=== PATIENT | female | born 1990 | race Caucasian/White ===

== ENCOUNTER 2017-03-25 11:17 | Inpatient (IN) | payer OTHER ==
[~2017-03-25] VITALS: Ht 160 cm; Wt 51.2 kg
[2017-03-25 12:14] VITALS: BP 115/54; PULSE 72; RESP 18; TEMP 98.4; O2SAT 100
--- NOTE | 2017-03-25 13:23 | PD ---
HPI Chief Complaint: Psychiatric Symptoms Time Seen by Provider: 13:05 Travel History International Travel<30 days: No Contact w/Intl Traveler<30days: No Traveled to known affect area: No History of Present Illness HPI 26-year-old female presents to emergency department as a Rios act from [facility]. Patient states that she was at home coloring when the police walked in and took her from her home. Patient is upset and would like to start coloring again. The patient is known IV drug user and her last use was 2 days ago. Patient denies fever, chills, chest pain, shortness of breath, abdominal pain. Patient does not have any other complaints today without to go home. Patient denies suicidal or homicidal ideations, hallucinations. PFSH Past Medical History Diabetes: No Seizures: No ?: Unknown Past Surgical History Section: Yes Tonsillectomy: Yes Social History Alcohol Use: Yes (OCC) Tobacco Use: Yes (1/2 PPD) Substance Use: Yes (MARIJUANA) Allergies-Medications (Allergen,Severity, Reaction): Coded Allergies: No Known Allergies (Verified Allergy, Unknown, 03/25/17) bupropion (Verified Allergy, Unknown, 03/25/17) Per pt, was taken off of Wellbutrin because she had seizures on it. Reported Meds & Prescriptions Reported Meds & Active Scripts Active Macrobid (Nitrofurantoin Monoh/Nitrofur Macro) 100 Mg Cap 100 Mg PO BID 7 Days Review of Systems Except as stated in HPI: all other systems reviewed are Neg Physical Exam Exam Limitations: Poor Historian Narrative GENERAL: Well-developed well-nourished in mild distress, upset SKIN: Focused skin assessment warm/dry. HEAD: Atraumatic. Normocephalic. EYES: Pupils equal and round. No scleral icterus. No injection or drainage. ENT: No nasal bleeding or discharge. Mucous membranes pink and moist. NECK: Trachea midline. No JVD. CARDIOVASCULAR: Regular rate and rhythm. No murmur appreciated. RESPIRATORY: No accessory muscle use. Clear to auscultation. Breath sounds equal bilaterally. MUSCULOSKELETAL: No obvious deformities. No clubbing. No cyanosis. No edema. NEUROLOGICAL: Awake and alert. No obvious cranial nerve deficits. Motor grossly within normal limits. Normal speech. PSYCHIATRIC: Patient angry, tearful upon questioning Data Data Last Documented VS Vital Signs Date Time Temp Pulse Resp B/P (MAP) Pulse Ox O2 Delivery O2 Flow Rate FiO2 03/25/17 12:14 98.4 72 18 115/54 (74) 100 Room Air Orders Orders Complete Blood Count With Diff (03/25/17 13:06) Comprehensive Metabolic Panel (03/25/17 13:06) Urinalysis - C+S If Indicated (03/25/17 13:06) Psych Screen (03/25/17 13:06) Drug Screen, Random Urine (03/25/17 13:06) Urine Culture (03/25/17 14:28) Admit Order (Ed Use Only) (03/25/17 16:02) Labs Laboratory Tests Test 03/25/17 14:16 03/25/17 14:28 White Blood Count 9.1 TH/MM3 Red Blood Count 5.30 MIL/MM3 Hemoglobin 12.0 GM/DL Hematocrit 36.0 % Mean Corpuscular Volume 67.9 FL Mean Corpuscular Hemoglobin 22.6 PG Mean Corpuscular Hemoglobin Concent 33.2 % Red Cell Distribution Width 14.8 % Platelet Count 254 TH/MM3 Mean Platelet Volume 8.7 FL Neutrophils (%) (Auto) 52.4 % Lymphocytes (%) (Auto) 33.8 % Monocytes (%) (Auto) 9.3 % Eosinophils (%) (Auto) 3.4 % Basophils (%) (Auto) 1.1 % Neutrophils # (Auto) 4.8 TH/MM3 Lymphocytes # (Auto) 3.1 TH/MM3 Monocytes # (Auto) 0.8 TH/MM3 Eosinophils # (Auto) 0.3 TH/MM3 Basophils # (Auto) 0.1 TH/MM3 CBC Comment DIFF FINAL Differential Comment Blood Urea Nitrogen 14 MG/DL Creatinine 0.63 MG/DL Random Glucose 82 MG/DL Total Protein 7.4 GM/DL Albumin 3.7 GM/DL Calcium Level 8.5 MG/DL Alkaline Phosphatase 71 U/L Aspartate Amino Transf (AST/SGOT) 46 U/L Alanine Aminotransferase (ALT/SGPT) 59 U/L Total Bilirubin 0.4 MG/DL Sodium Level 139 MEQ/L Potassium Level 3.9 MEQ/L Chloride Level 106 MEQ/L Carbon Dioxide Level 27.3 MEQ/L Anion Gap 6 MEQ/L Estimat Glomerular Filtration Rate 113 ML/MIN Urine Color LIGHT-YELLOW Urine Turbidity CLOUDY Urine pH 8.0 Urine Specific [place] 1.008 Urine Protein NEG mg/dL Urine Glucose (UA) NEG mg/dL Urine Ketones NEG mg/dL Urine Occult Blood NEG Urine Nitrite NEG Urine Bilirubin NEG Urine Urobilinogen LESS THAN 2.0 MG/DL Urine Leukocyte Esterase LARGE Urine RBC LESS THAN 1 /hpf Urine WBC 9 /hpf Urine Squamous Epithelial Cells 1 /hpf Urine Amorphous Sediment MANY Urine Bacteria OCC /hpf Urine Mucus FEW /lpf Microscopic Urinalysis Comment CULTURE INDICATED Urine Opiates Screen NEG Urine Barbiturates Screen NEG Urine Amphetamines Screen NEG Urine Benzodiazepines Screen NEG Urine Cocaine Screen NEG Urine Cannabinoids Screen POS MDM Medical Decision Making Medical Screen Exam Complete: Yes Emergency Medical Condition: Yes Differential Diagnosis SI, HI, delirium, polysubstance abuse, MDD, substance induce mood disorder Narrative Course 26-year-old female presents to emergency department as a Rios act from [facility]. Patient states that she was at home coloring when the police walked in and took her from her home. Patient is upset and would like to start coloring again. The patient is known IV drug user and her last use was 2 days ago. Patient denies fever, chills, chest pain, shortness of breath, abdominal pain. Patient does not have any other complaints today without to go home. Patient denies suicidal or homicidal ideations, hallucinations. Vital signs stable Physical exam limited secondary to patient's reluctance to cooperate. Laboratory Tests Test 03/25/17 14:16 03/25/17 14:28 White Blood Count 9.1 TH/MM3 Red Blood Count 5.30 MIL/MM3 Hemoglobin 12.0 GM/DL Hematocrit 36.0 % Mean Corpuscular Volume 67.9 FL Mean Corpuscular Hemoglobin 22.6 PG Mean Corpuscular Hemoglobin Concent 33.2 % Red Cell Distribution Width 14.8 % Platelet Count 254 TH/MM3 Mean Platelet Volume 8.7 FL Neutrophils (%) (Auto) 52.4 % Lymphocytes (%) (Auto) 33.8 % Monocytes (%) (Auto) 9.3 % Eosinophils (%) (Auto) 3.4 % Basophils (%) (Auto) 1.1 % Neutrophils # (Auto) 4.8 TH/MM3 Lymphocytes # (Auto) 3.1 TH/MM3 Monocytes # (Auto) 0.8 TH/MM3 Eosinophils # (Auto) 0.3 TH/MM3 Basophils # (Auto) 0.1 TH/MM3 CBC Comment DIFF FINAL Differential Comment Blood Urea Nitrogen 14 MG/DL Creatinine 0.63 MG/DL Random Glucose 82 MG/DL Total Protein 7.4 GM/DL Albumin 3.7 GM/DL Calcium Level 8.5 MG/DL Alkaline Phosphatase 71 U/L Aspartate Amino Transf (AST/SGOT) 46 U/L Alanine Aminotransferase (ALT/SGPT) 59 U/L Total Bilirubin 0.4 MG/DL Sodium Level 139 MEQ/L Potassium Level 3.9 MEQ/L Chloride Level 106 MEQ/L Carbon Dioxide Level 27.3 MEQ/L Anion Gap 6 MEQ/L Estimat Glomerular Filtration Rate 113 ML/MIN Urine Color LIGHT-YELLOW Urine Turbidity CLOUDY Urine pH 8.0 Urine Specific [place] 1.008 Urine Protein NEG mg/dL Urine Glucose (UA) NEG mg/dL Urine Ketones NEG mg/dL Urine Occult Blood NEG Urine Nitrite NEG Urine Bilirubin NEG Urine Urobilinogen LESS THAN 2.0 MG/DL Urine Leukocyte Esterase LARGE Urine RBC LESS THAN 1 /hpf Urine WBC 9 /hpf Urine Squamous Epithelial Cells 1 /hpf Urine Amorphous Sediment MANY Urine Bacteria OCC /hpf Urine Mucus FEW /lpf Microscopic Urinalysis Comment CULTURE INDICATED Urine Opiates Screen NEG Urine Barbiturates Screen NEG Urine Amphetamines Screen NEG Urine Benzodiazepines Screen NEG Urine Cocaine Screen NEG Urine Cannabinoids Screen POS Patient is medically cleared to see psych. According to staff, patient was brought in by the police department after being homeless on [address]. Urinalysis consistent with urinary tract infection. We'll prescribe Macrobid twice a day. Patient is admitted to psych. Diagnosis Primary Impression: UTI (urinary tract infection) Qualified Codes: N30.00 - Acute cystitis without hematuria Referrals: [facility] Nitrofurantoin Monohydrate Macrocrystals (Macrobid) 100 Mg Cap 100 MG PO BID for Infection for 7 Days, #14 CAP 0 Refills Prov: Margareth Bruce DO 03/25/17 Condition: Stable Diana Vale Mar 25, 2017 13:23
[2017-03-25 15:26] LABS: AUTOMATED NEUTROPHIL # 4.8 TH/MM3 (1.8-7.7); BASOPHIL # 0.1 TH/MM3 (0-0.2); BASOPHIL % 1.1 % (0.0-2.0); EOSINOPHIL # 0.3 TH/MM3 (0-0.4); EOSINOPHIL % 3.4 % (0.0-4.0); HEMO FLAGS DIFF FINAL; LYMPH % 33.8 % (9.0-44.0); LYMPHOCYTE # 3.1 TH/MM3 (1.0-4.8); MEAN CELL VOLUME 67.9 FL (80.0-100.0); MEAN CORPUSCULAR HEMOGLOBIN 22.6 PG (27.0-34.0); MEAN CORPUSCULAR HGB CONC 33.2 % (32.0-36.0); MONO % 9.3 % (0.0-8.0); NEUT % 52.4 % (16.0-70.0); PLATELET COUNT 254 TH/MM3 (150-450); RED CELL DISTRIBUTION WIDTH 14.8 % (11.6-17.2); WHITE BLOOD COUNT 9.1 TH/MM3 (4.0-11.0)
[2017-03-25 15:29] LABS: BACTERIA, URINE OCC /hpf; BLOOD, URINE NEG (NEG); COMMENT (UR) CULTURE INDICATED; CULTURE IF INDICATED CULTURE INDICATED; GLUCOSE,URINE NEG (NEG); KETONE, URINE NEG (NEG); MUCUS URINE FEW /lpf (OCC); NITRITE,URINE NEG (NEG); SQUAMOUS EPITHELIAL CELL URINE 1 /hpf (0-5); URINE COLOR LIGHT-YELLOW (YELLW/STRAW)
[2017-03-25 15:55] LABS: ALKALINE PHOSPHATASE 71 U/L (45-117); TOTAL BILIRUBIN ADULT 0.4 MG/DL (0.2-1.0)
[2017-03-25] MEDS ORDERED: MACR100C2 PO (16:00)
[2017-03-25 16:15] LABS: ALT (GPT) 59 U/L (10-53); ANION GAP 6 MEQ/L (5-15); AST (GOT) 46 U/L (15-37); BICARBONATE 27.3 MEQ/L (21.0-32.0); BLOOD UREA NITROGEN 14 MG/DL (7-18); CHLORIDE 106 MEQ/L (98-107); GLOMERULAR FILTRATION RATE 113 ML/MIN (>89); SODIUM (NA) 139 MEQ/L (136-145)
[2017-03-25] MEDS ORDERED: ALUMINUM/MAGNESIUM/SIMETH 30 ML CUP PO PRN (16:15)
[2017-03-25] MEDS ORDERED: LORazepam 2 MG/ML VIAL IM PRN (16:15)
[2017-03-25 16:18] LABS: POTASSIUM 3.9 MEQ/L (3.5-5.1)
--- NOTE | 2017-03-25 16:20 | HHI.HP ---
Provisional Diagnosis Admission Date Mar 25, 2017 at 16:04 Grant I. Brief psychotic disorder Certification of Person's Competence To Provide Express and Informed Consent I have personally examined Nathalia Barber , a person being served at [facility] on, Mar 25, 2017 16:11. Express and informed consent means consent voluntarily given in writing, by a competent person, after sufficient explanation and disclosure of the subject matter involved to enable the person to make a knowing and willful decision without any element of force, fraud, deceit, duress, or other form of constraint or coercion. This person is 18 years of age or older, is not now known to be incompetent to consent to treatment with a guardian advocate, and does not have a health care surrogate or proxy currently making medical treatment decisions. I have found this person to be one of the following: [] Competent to provide express and informed consent, as defined above, for voluntary admission to this facility and is competent to provide express and informed consent for treatment. He/she has the consistent capacity to make well reasoned, willful, and knowing decisions concerning his or her medical or mental health treatment. The person fully and consistently understands the purpose of the admission for examination/placement and is fully capable of personally exercising all rights [place] [X] Incompetent to provide express and informed consent to voluntary admission, and this is incompetent to provide express and informed consent to treatment. The person must be transferred to involuntary status and a petition for a guardian advocate filed with the Circuit Court. [] Refusing to provide express and informed consent to voluntary admission but is competent to provide express and informed consent for treatment. The person must be discharged or transferred to involuntary status. Form shall be completed within 24 hours of a person's arrival at the receiving facility and filed in the clinical record of each person: 1. Admitted on a voluntary basis 2. Permitted to provide express and informed consent to his/her own treatment 3. Allowed to transfer from involuntary to voluntary status 4. Prior to permitting a person to consent to his or her own treatment after having been previously found incompetent to consent to treatment. History of Present Illness Capacity: Lacks Capacity HPI 26-year-old female brought in under a Rios act initiated by law enforcement for what appears to be bizarre thinking and homicidal remarks. Apparently the patient was at her mother's house this morning and appeared to be under the influence of drugs and in an altered state of mind. (The patient's mother reportedly has power of staff attorney over the patient.) The patient had written down in a diary like book to find Yessica, her daughter and kill her. The patient had also written other strange comments about hurting Yessica, who is the 4-year- old daughter of the patient. One of the bizarre comments made by the patient's , in her writings was to smell the vagina of her 4-year-old daughter. Upon interview, the patient is a very poor historian. She is highly emotionally distraught. She is speaking very rapidly and at times in a pressured manner at this physician. She is screaming, crying, and refusing to participate in the interview. This physician understands from the patient's stepfather the patient has used drugs (intravenously) approximately 2 days ago. The patient is positive for cannabinoids. The patient's daughter was recently given to the patient's paternal grandparents. The patient is denying writing these bizarre comments but these comments are contained amongst the patient's belongings, and what appears to be the patient's diary like book. Review of Systems ROS Limitations: Clinical Condition Psychiatric: COMPLAINS OF: Mood changes Except as stated in HPI: all other systems reviewed are Neg Past Psych History Psychological trauma history Unknown Violence risk - others (6 mos) High Violence risk - self (6 mos) High Substance Abuse History Drugs/Alcohol past 12 months Patient reportedly abuses drugs. Past Family Social History Coded Allergies: No Known Allergies (Verified Allergy, Unknown, 03/25/17) bupropion (Verified Allergy, Unknown, 03/25/17) Per pt, was taken off of Wellbutrin because she had seizures on it. Active Scripts Nitrofurantoin Monohydrate Macrocrystals (Macrobid) 100 Mg Cap, 100 MG PO BID for Infection for 7 Days, #14 CAP 0 Refills Prov:Margareth Bruce To DO 03/25/17 Current Medications Medications (Trade) Dose Ordered Sig/Jose Route Start Time Stop Time Status Last Admin (Ativan) 1 mg Q6H PRN PO 03/25/17 16:15 UNV (Ativan Inj) 1 mg Q6H PRN IM 03/25/17 16:15 UNV (Tylenol) 650 mg Q4H PRN PO 03/25/17 16:15 UNV (Milk Of Magnesia Liq) 30 ml DAILY PRN PO 03/25/17 16:15 (Mag-Al Plus Susp Liq) 30 ml Q6H PRN PO 03/25/17 16:15 UNV Family Psych History Unknown. Patient poor historian. Social History Patient is not currently employed. Mother and stepfather are apparently supportive. Mother has power of staff attorney over patient. Patient's daughter has been removed from patient's custody. As stated above, patient has been abusing drugs. Patient's Strengths (min. 2) Patient is verbal and has supportive parents. Physical Exam GENERAL: SKIN: Warm and dry. HEAD: Normocephalic. EYES: No scleral icterus. No injection or drainage. NECK: Supple, trachea midline. No JVD or lymphadenopathy. CARDIOVASCULAR: Regular rate and rhythm without murmurs, gallops, or rubs. RESPIRATORY: Breath sounds equal bilaterally. No accessory muscle use. GASTROINTESTINAL: Abdomen soft, non-tender, nondistended. MUSCULOSKELETAL: No cyanosis, or edema. BACK: Nontender without obvious deformity. No CVA tenderness. Vital Signs Vital Signs Date Time Temp Pulse Resp B/P (MAP) Pulse Ox O2 Delivery O2 Flow Rate FiO2 03/25/17 12:14 98.4 72 18 115/54 (74) 100 Room Air Lab Results Test 03/25/17 14:16 03/25/17 14:28 White Blood Count 9.1 TH/MM3 Red Blood Count 5.30 MIL/MM3 Hemoglobin 12.0 GM/DL Hematocrit 36.0 % Mean Corpuscular Volume 67.9 FL Mean Corpuscular Hemoglobin 22.6 PG Mean Corpuscular Hemoglobin Concent 33.2 % Red Cell Distribution Width 14.8 % Platelet Count 254 TH/MM3 Mean Platelet Volume 8.7 FL Neutrophils (%) (Auto) 52.4 % Lymphocytes (%) (Auto) 33.8 % Monocytes (%) (Auto) 9.3 % Eosinophils (%) (Auto) 3.4 % Basophils (%) (Auto) 1.1 % Neutrophils # (Auto) 4.8 TH/MM3 Lymphocytes # (Auto) 3.1 TH/MM3 Monocytes # (Auto) 0.8 TH/MM3 Eosinophils # (Auto) 0.3 TH/MM3 Basophils # (Auto) 0.1 TH/MM3 CBC Comment DIFF FINAL Differential Comment Total Protein 7.4 GM/DL Alkaline Phosphatase 71 U/L Total Bilirubin 0.4 MG/DL Urine Color LIGHT-YELLOW Urine Turbidity CLOUDY Urine pH 8.0 Urine Specific [place] 1.008 Urine Protein NEG mg/dL Urine Glucose (UA) NEG mg/dL Urine Ketones NEG mg/dL Urine Occult Blood NEG Urine Nitrite NEG Urine Bilirubin NEG Urine Urobilinogen LESS THAN 2.0 MG/DL Urine Leukocyte Esterase LARGE Urine RBC LESS THAN 1 /hpf Urine WBC 9 /hpf Urine Squamous Epithelial Cells 1 /hpf Urine Amorphous Sediment MANY Urine Bacteria OCC /hpf Urine Mucus FEW /lpf Microscopic Urinalysis Comment CULTURE INDICATED Urine Opiates Screen NEG Urine Barbiturates Screen NEG Urine Amphetamines Screen NEG Urine Benzodiazepines Screen NEG Urine Cocaine Screen NEG Urine Cannabinoids Screen POS Date/Time Source Procedure Growth Status 03/25/17 14:28 Urine Clean Catch Urine Culture Pending Received Mental Status Examination Appearance: Appropriate, Disheveled Consciousness: Alert, Highly Distractible, Other Orientation: Person, Place Motor Activity: Normal gait Speech: Pressured, Rapid Language: Perseveration Fund of Knowledge: Inadequate Attention and Concentration: Easily Distracted, Inadequate Memory: Impaired Mood: Angry, Oppositional, Anxious Affect: Labile Thought Process & Associations: Disorganized Thought Content: Bizarre thinking, Ideas of reference Hallucination Type: Other Delusion Type: None Suicidal Ideation: No Suicidal Plan: No Suicidal Intention: No Homicidal Ideation: No Homicidal Plan: No Homicidal Intention: No Insight: Poor Judgment: Poor Assessment & Plan Problem List: (1) Brief psychotic disorder ICD Codes: F23 - Brief psychotic disorder Status: Acute Assessment & Plan Estimated LOS: days. 26-year-old female brought in under a Rios act for making this are written comments about killing her own daughter, smelling her daughter's vagina, etc. Patient just got out of control in the J pod of the emergency department, pulling the fire alarm, fighting with staff and attempting to break out of this unit. Patient required physical restraints and chemical restraints. As patient is felt to be psychotic, dangerous to self and others, she is being admitted for further evaluation and treatment. This physician has ordered a CBC and comprehensive metabolic panel to determine if any infectious process or metabolic process is causing or contributing to the patient's psychosis and agitation. This physician has also ordered hemoglobin A1c and a lipid panel as psychotropics being given can adversely affect her blood sugars and her cholesterol level. Furthermore, this physician has ordered thyroid stimulating hormone, vitamin B-12 and vitamin D level to determine if any deficiencies in these areas is causing or contributing to her psychosis and agitation. This physician spoke with the patient's nurse, Hiwot, who was on the phone with the patient's mother when the patient became physically aggressive. We will continue to gather further information from the mother and Hiwot is providing this physician with information about the patient's recent psychosis. This physician ordered an EKG to determine the patient's cardiac conduction status prior to making substantial changes in psychotropic medicines as these may adversely affect the electrical system of her heart. Finally, case management is also being involved to assist with information gathering and disposition planning. Sam Abbasi MD Mar 25, 2017 16:20
[2017-03-25] MEDS ORDERED: ZIPRASIDONE MESYLATE 20 MG VIAL IM ONE ×2 (16:27→16:30)
[2017-03-25] MEDS ORDERED: diphenhydrAMINE HCL 50 MG/ML VIAL ONE (16:27)
[2017-03-25] MEDS ORDERED: diphenhydrAMINE HCL 50 MG/ML VIAL IM ONE (16:30)
[2017-03-25] MEDS ORDERED: LORazepam 2 MG/ML VIAL IM ONE ×2 (16:30→16:45)
[2017-03-25 16:55] VITALS: BP 116/59; PULSE 72; RESP 16; O2SAT 98
[2017-03-25 17:23] VITALS: BP 120/56; PULSE 81; RESP 16; O2SAT 97
[2017-03-25 18:27] VITALS: BP 105/59; PULSE 72; RESP 12; O2SAT 99
[2017-03-25 20:00] VITALS: BP 80/44; PULSE 55; RESP 16; O2SAT 97
[2017-03-26 05:50] VITALS: BP 96/52; PULSE 51; RESP 16; TEMP 97.9; O2SAT 96
--- NOTE | 2017-03-26 09:37 | PD.PSY.CON ---
Provisional Diagnosis Admission Date Mar 25, 2017 at 16:04 Kathleen I. 1. Brief psychotic disorder Rule out primary psychotic disorder such as schizophrenia Rule out mood disorder with psychotic features such as bipolar disorder Rule out psychosis due to a substance Rule out psychosis due to a general medical condition 2. Polysubstance abuse (cannabis by [facility], amphetamine use reported by patient) Kathleen II. Deferred History of Present Illness Service Psychiatry Consult Requested By Dr. Abbasi Reason for Consult Second opinion for involuntary psychiatric hospitalization Primary Care Physician No Primary Care Physician HPI From Dr. Abbasi's H&P: 26-year-old female brought in under a Rios act initiated by law enforcement for what appears to be bizarre thinking and homicidal remarks. Apparently the patient was at her mother's house this morning and appeared to be under the influence of drugs and in an altered state of mind. (The patient's mother reportedly has power of sheet metal supervisor over the patient.) The patient had written down in a diary like book to find Yessica, her daughter and kill her. The patient had also written other strange comments about hurting Yessica, who is the 4-year- old daughter of the patient. One of the bizarre comments made by the patient's , in her writings was to smell the vagina of her 4-year-old daughter. Upon interview, the patient is a very poor historian. She is highly emotionally distraught. She is speaking very rapidly and at times in a pressured manner at this physician. She is screaming, crying, and refusing to participate in the interview. This physician understands from the patient's stepfather the patient has used drugs (intravenously) approximately 2 days ago. The patient is positive for cannabinoids. The patient's daughter was recently given to the patient's paternal grandparents. The patient is denying writing these bizarre comments but these comments are contained amongst the patient's belongings, and what appears to be the patient's diary like book. On my examination today: Patient seen and examined with nurse. Chart reviewed. Case discussed with nursing staff. Case also discussed in treatment team The patient did receive Geodon, Ativan and Benadryl yesterday evening and reportedly has been somewhat sedated since. She is able to participate in interview with me this morning. She continues to make bizarre statements, saying "I didn't do nothing wrong. I showed them a picture with the Chelsea to protect my daughter from insanity. " Alexithymic with respect to mood. She denies SI/HI but seems unreliable contract for safety. Denies audiovisual hallucinations but appears somewhat internally stimulated still. She remains paranoid about people trying to get at her daughter. She reports that sleep and appetite are fair. Besides some mild sedation, no side effects from medications overnight. Complains of vaginal discharge and malodor. No other physical complaints. Past psychiatric history: Patient is likely an unreliable historian. She is unsure of previous psychiatric diagnoses. She is not currently under the care of a psychiatrist. She reports a previous suicide attempt "while I was drunk" several years ago. Family history: Patient is unsure of family psychiatric history. Chemical dependency history: The patient reports that she uses methamphetamine "daily, if I can." Social history: Patient reports she has a 4 year-old daughter. She is evasive on her current living condition, noting only "I have a place to stay." Patient reports that she dropped out of the 11th grade. She does not work. She has no income. She denies any access to guns or firearms. Accompanying the patient is a journal and legal notepad with writing alleged to be by patient. I have reviewed these documents. They consist of tightly packed , hypergraphic writing that is rambling and difficult to follow. It includes references to drug use and also poems. One of these poems seems to be about patient's daughter, Yessica, and reads in part "Find Yessica and make her cum / Find Yessica and make her cunt / Cum 5 times in her butt." Given patient's degree of psychiatric impairment, I have obtained lateral from patient's mother and presumptive healthcare surrogate Margareth Zambrano over the phone. Ms. Zambrano is understandably quite overwrought and upset by patient's condition, and this does degrade the quality of the collateral somewhat. From what I can gather, patient was living independently and holding down a job until about 1.5 years ago when she became volitionally homeless. Patient reportedly provided no explanation for this decision. Patient also was noted to engage in use of drugs, and Ms. Zambrano has found drug paraphernalia among patient's belongings. Ms. Zambrano notes that the patient has been hallucinating. She has reported multiple miscarriages to mother and has another child other than Yessica while at [employer], the whereabouts of whom is unknown. Ms. Zambrano notes that patient has no prior history of mental illness. There is a family history of BPAD or perhaps schizophrenia in patient's biological father. I discuss treatment plan with Ms. Zambrano in her role as presumptive HCS. Review of Systems ROS Limitations: Psychotic, Poor Historian Except as stated in HPI: all other systems reviewed are Neg Past Family Social History Coded Allergies: No Known Allergies (Verified Allergy, Unknown, 03/25/17) bupropion (Verified Allergy, Unknown, 03/25/17) Per pt, was taken off of Wellbutrin because she had seizures on it. Past Medical History Patient denies any medical issues Active Scripts Nitrofurantoin Monohydrate Macrocrystals (Macrobid) 100 Mg Cap, 100 MG PO BID for Infection for 7 Days, #14 CAP 0 Refills Prov:Margareth Bruce DO 03/25/17 Current Medications Medications (Trade) Dose Ordered Sig/Jose Route Start Time Stop Time Status Last Admin (Ativan) 1 mg Q6H PRN PO 03/25/17 16:15 (Ativan Inj) 1 mg Q6H PRN IM 03/25/17 16:15 (Tylenol) 650 mg Q4H PRN PO 03/25/17 16:15 (Milk Of Magnesia Liq) 30 ml DAILY PRN PO 03/25/17 16:15 (Mag-Al Plus Susp Liq) 30 ml Q6H PRN PO 03/25/17 16:15 Patient reports that she is prescribed Lexapro and Remeron on an outpatient basis although she is poorly adherent with these medications. Family Psych History See above Social History See above Patient's Strengths (min. 2) Supportive mother. In a monitored setting. Physical Exam Physical exam completed by ED provider. On my examination today, the patient appears to be in no acute physical distress. No motor abnormalities noted. Signs of withdrawal noted. Labs and vitals reviewed: Vital Signs Vital Signs Date Time Temp Pulse Resp B/P (MAP) Pulse Ox O2 Delivery O2 Flow Rate FiO2 03/26/17 05:50 97.9 51 16 96/52 (67) 96 03/25/17 18:27 Room Air Lab Results Item Value Date Time White Blood Count 5.3 TH/MM3 03/26/17 1100 Hemoglobin 12.3 GM/DL 03/26/17 1100 Platelet Count 260 TH/MM3 03/26/17 1100 Sodium Level 141 MEQ/L 03/26/17 1100 Potassium Level 3.9 MEQ/L 03/26/17 1100 Chloride Level 108 MEQ/L H 03/26/17 1100 Carbon Dioxide Level 28.2 MEQ/L 03/26/17 1100 Blood Urea Nitrogen 12 MG/DL 03/26/17 1100 Creatinine 0.80 MG/DL 03/26/17 1100 Estimat Glomerular Filtration Rate 85 ML/MIN L 03/26/17 1100 Random Glucose 69 MG/DL L 03/26/17 1100 Hemoglobin A1c 5.6 % 03/26/17 1100 Aspartate Amino Transf (AST/SGOT) 45 U/L H 03/26/17 1100 Alanine Aminotransferase (ALT/SGPT) 59 U/L H 03/26/17 1100 Alkaline Phosphatase 60 U/L 03/26/17 1100 Vitamin B12 Level 461 PG/ML 03/26/17 1100 25-Hydroxy Vitamin D Total 18.4 ng/ML L 03/26/17 1100 Thyroid Stimulating Hormone 3rd Gen 0.780 uIU/ML 03/26/17 1100 Urine Cannabinoids Screen POS H 03/25/17 1428 Urine WBC 9 /hpf H 03/25/17 1428 Urine Leukocyte Esterase LARGE H 03/25/17 1428 Labs reviewed. UTox +THC. UA concerning for UTI and urine culture growing out gram-negative rods. Mild stable transaminitis. Mental Status Examination Appearance: Disheveled Consciousness: Other (sleepy but arousable) Orientation: Person, Place (at least) Motor Activity: Other (no motor abnormalities noted) Speech: Unremarkable Language: Adequate Fund of Knowledge: Adequate Attention and Concentration: Adequate Memory: Impaired (possibly some degree of confabulation) Mood: Other (calm) Affect: Blunt Thought Process & Associations: Circumstantial Thought Content: Bizarre thinking, Delusional Hallucination Type: Other (Denies AVH but appears int stim) Delusion Type: Paranoid Suicidal Ideation: No (unreliable to contract for safety) Suicidal Plan: No Suicidal Intention: No Homicidal Ideation: No (unreliable to contract for safety) Homicidal Plan: No Homicidal Intention: No Insight: Poor Judgment: Poor Assessment & Plan Problem List: (1) Brief psychotic disorder ICD Codes: F23 - Brief psychotic disorder Status: Acute (2) Polysubstance abuse ICD Codes: F19.10 - Other psychoactive substance abuse, uncomplicated Assessment & Plan Given the circumstances of patient's presentation here and her presentation on my examination today, I concur with Dr. Abbasi that the patient meets criteria for involuntary psychiatric hospitalization under the Rios act. I have completed second opinion paperwork. litigation legal secretary informs me that Dr. Abbasi has additionally requested a healthcare surrogate and guardian advocate, and I believe this remains appropriate at this juncture. I will be assuming primary care of the case. --First-break psychosis workup including MRI brain w/ and w/o contrast, JOSE, ESR , RPR, HIV. Also possible history of (?medication induced) seizure and so will check EEG and institute seizure precautions. --Check bHCG. --Follow up EKG ordered by Dr. Abbasi --Monitor overnight and hold off on scheduled psychotropics at this time. Ddx is broad and includes substance-induced psychotic disorder, which would be expected to improve as time from last substance use increases, and it is worth monitoring for this improvement. We additionally need to work the patient up for a general medical causes of her current symptoms. --Consult to hospitalist to follow up on UTI and for Screed Person complaints. Continue Macrobid and follow cultures. --Vitamin D supplement --Continue to monitor on the high acuity unit. Continue other medications and care as ordered. Discharge Planning Pending psychiatric stabilization Request HC Surrog/Guard Advoc?: Yes Brian Sutton MD Mar 26, 2017 09:37
[2017-03-26 12:22] LABS: AUTOMATED NEUTROPHIL # 2.6 TH/MM3 (1.8-7.7); BASOPHIL # 0.1 TH/MM3 (0-0.2); BASOPHIL % 1.2 % (0.0-2.0); EOSINOPHIL # 0.3 TH/MM3 (0-0.4); EOSINOPHIL % 5.3 % (0.0-4.0); HEMATOCRIT 38.5 % (35.0-46.0); HEMO FLAGS DIFF FINAL; LYMPH % 35.9 % (9.0-44.0); LYMPHOCYTE # 1.9 TH/MM3 (1.0-4.8); MEAN CORPUSCULAR HEMOGLOBIN 21.7 PG (27.0-34.0); MONO % 9.2 % (0.0-8.0); NEUT % 48.4 % (16.0-70.0); PLATELET COUNT 260 TH/MM3 (150-450); RED BLOOD COUNT 5.66 MIL/MM3 (4.00-5.30); RED CELL DISTRIBUTION WIDTH 15.5 % (11.6-17.2); WHITE BLOOD COUNT 5.3 TH/MM3 (4.0-11.0)
[2017-03-26 12:51] LABS: ANION GAP 5 MEQ/L (5-15); AST (GOT) 45 U/L (15-37); BICARBONATE 28.2 MEQ/L (21.0-32.0); BLOOD UREA NITROGEN 12 MG/DL (7-18); CHLORIDE 108 MEQ/L (98-107); GLOMERULAR FILTRATION RATE 85 ML/MIN (>89); POTASSIUM 3.9 MEQ/L (3.5-5.1); SODIUM (NA) 141 MEQ/L (136-145)
[2017-03-26 13:18] LABS: ALKALINE PHOSPHATASE 60 U/L (45-117); ALT (GPT) 59 U/L (10-53); HDL CHOLESTEROL 63.1 MG/DL (40.0-60.0); LDL CHOLESTEROL 113 MG/DL (0-99); TOTAL BILIRUBIN ADULT 0.6 MG/DL (0.2-1.0)
[2017-03-26 13:40] LABS: HEMOGLOBIN A1a 1.6 %; HEMOGLOBIN A1b 0.9 %; HEMOGLOBIN Ao 83.9 %; HEMOGLOBIN F 2.3 %; HEMOGLOBIN LA1C 1.9 %; HEMOGLOBIN P3 3.6 %
--- NOTE | 2017-03-26 14:08 | PD.TTN ---
Patient Problems 1. Discharge planning 2. Medication compliance 3. Knowledge deficit 4. Lack of coping skills Progress Toward Goals Provider Present: Dr. Amelia Sutton Provider Input: Pt is new to the unit and will be evaluated along with medication regiment to assess for any possible changes. Nurse(s) Present: Jesus Jarvis RN Nurse(s) Input: Pt is new and is being treated and monitored on unit. Psychiatric Counselors Present: KAREN Dennison Psych Therapist Input: Pt is new and will be evaluated using biopsychosocial assessment. Group Spec/RT/OT/GOODWIN Present: SEA Ying Group Spec/RT/OT/GOODWIN Input: Pt will be evaluated as she is new to the unit. Discharge Plan SMA Discharge plan will be formulated as treatment continues on unit. Documentation Scribe: KAREN Dennison Jonathan LMHC Mar 26, 2017 14:08
[2017-03-26] MEDS: LORazepam 1 MG TAB PO PRN ×2 (14:23→20:17)
--- NOTE | 2017-03-26 16:32 | PD.CONS ---
[facility] By [facility] Care Physician No Primary Care Physician Diagnoses: History of Present Illness History from patient's, ER physician notes, nursing staff, and review medical records. Patient was admitted to psychiatry unit on March 25, 2017 for diagnosis of brief psychotic episode he entered Rios act. Medical team was consulted for management of UTI. Patient tells me that she has been having urinary burning and pain on urination. She reports that her symptoms are not similar to her usual UTIs. She is worried about STDs. She denies any new partner. She denies any fever although she does feel warm to touch. According to the psychiatry nurse, patient was initially quite agitated and combative. She received Ativan by mouth prior to my arrival. She is quite calm during my interview and sleeping. Apparently she is also due for MRI of the brain studies per her psychiatrist for evaluation of her psychosis. Patient reports of history of seizures which started about a month ago. She cannot describe to me her seizure episodes. She stated it was not witnessed as she does not live with anybody. She denies drinking alcohol. She admits to using IV drugs. Particularly, she admits to using methamphetamine. She denies K2 use. Denies any benzodiazepine use. Performing above, patient denies any recent fever/shortness of breath/chest pain /palpitations/syncopal episodes. She denies any hematemesis/hematochezia/melena/hematuria. Denies abdominal pains. Review of Systems Except as stated in HPI: all other systems reviewed are Neg Past Family Social History Allergies: Coded Allergies: No Known Allergies (Verified Allergy, Unknown, 03/25/17) bupropion (Verified Allergy, Unknown, 03/25/17) Per pt, was taken off of Wellbutrin because she had seizures on it. Past Medical History Hepatitis C Seizure disorder which according to the patient started about a month ago Past Surgical History Tonsillectomy Family History Reports her brother has asthma Social History Smokes about a pack a day. Denies any alcohol abuse. The patient does use IV drugs. Particularly he reports IV amphetamine. Physical Exam Vital Signs Vital Signs Date Time Temp Pulse Resp B/P (MAP) Pulse Ox O2 Delivery O2 Flow Rate FiO2 03/26/17 05:50 97.9 51 16 96/52 (67) 96 03/25/17 20:00 55 16 80/44 (56) 97 03/25/17 19:51 03/25/17 18:27 72 12 105/59 (74) 99 Room Air 03/25/17 17:23 81 16 120/56 (77) 97 03/25/17 16:55 72 16 116/59 (78) 98 Room Air Physical Exam GENERAL: Patient, in no apparent distress. Pleasant young lady, thin body habitus SKIN: No rashes, ecchymoses or lesions. Cool and dry. HEAD: Atraumatic. Normocephalic. No temporal or scalp tenderness. EYES: No scleral icterus. No injection or drainage. ENT: Nose without bleeding, purulent drainage or septal hematoma. . Airway patent. NECK: Trachea midline. No JVD . Supple, nontender, no meningeal signs. CARDIOVASCULAR: Regular rate and rhythm without murmurs, gallops, or rubs. RESPIRATORY: Clear to auscultation. Breath sounds equal bilaterally. No wheezes , rales, or rhonchi. GASTROINTESTINAL: Abdomen soft, non-tender, nondistended. No guarding. MUSCULOSKELETAL: Extremities without clubbing, cyanosis, or edema. No calf tenderness. NEUROLOGICAL: Awake and alert. Motor and sensory grossly within normal limits. Normal speech. Laboratory Laboratory Tests Test 03/26/17 11:00 White Blood Count 5.3 Red Blood Count 5.66 Hemoglobin 12.3 Hematocrit 38.5 Mean Corpuscular Volume 68.0 Mean Corpuscular Hemoglobin 21.7 Mean Corpuscular Hemoglobin Concent 32.0 Red Cell Distribution Width 15.5 Platelet Count 260 Mean Platelet Volume 8.6 Neutrophils (%) (Auto) 48.4 Lymphocytes (%) (Auto) 35.9 Monocytes (%) (Auto) 9.2 Eosinophils (%) (Auto) 5.3 Basophils (%) (Auto) 1.2 Neutrophils # (Auto) 2.6 Lymphocytes # (Auto) 1.9 Monocytes # (Auto) 0.5 Eosinophils # (Auto) 0.3 Basophils # (Auto) 0.1 CBC Comment DIFF FINAL Differential Comment Blood Urea Nitrogen 12 Creatinine 0.80 Random Glucose 69 Total Protein 7.2 Albumin 3.6 Calcium Level 8.9 Alkaline Phosphatase 60 Aspartate Amino Transf (AST/SGOT) 45 Alanine Aminotransferase (ALT/SGPT) 59 Total Bilirubin 0.6 Sodium Level 141 Potassium Level 3.9 Chloride Level 108 Carbon Dioxide Level 28.2 Anion Gap 5 Estimat Glomerular Filtration Rate 85 Hemoglobin A1c 5.6 Triglycerides Level 64 Cholesterol Level 189 LDL Cholesterol 113 HDL Cholesterol 63.1 Cholesterol/HDL Ratio 2.99 Vitamin B12 Level 461 25-Hydroxy Vitamin D Total 18.4 Thyroid Stimulating Hormone 3rd Gen 0.780 Beta HCG, Qualitative LESS THAN 1 Date/Time Source Procedure Growth Status 03/25/17 14:28 Urine Clean Catch Urine Culture - Preliminary Gram Negative Mark Resulted Result Diagram: 03/26/17 1100 03/26/17 1100 Assessment and Plan Assessment and Plan Impression: Brief psychotic episodes. Management per psychiatrist UTI Reported seizures which started about a month ago History of hepatitis C Plan: We'll follow urine culture results. Currently patient is on Macrobid. Doubt that this would cover completely. However wouldn't adjust only after cultures are resulted since patient is stable. MRI of the brain with and without contrast pending. Ordered per psychiatrist. EEG pending. We'll follow up. Check ammonia level. Check TSH. GC/Chlamydia to be sent. DVT prophylaxis with ambulation. Discussed Condition With patient, nursing staff Fernanda Mendoza MD Mar 26, 2017 16:32
[2017-03-26] MEDS: NITROFURANTOIN MONOHYD MACROCR 100 MG CAP PO SCH (16:36)
[2017-03-26 17:23] VITALS: BP 100/49; RESP 18; TEMP 98.6; O2SAT 97
[2017-03-26] MEDS ORDERED: GADODIAMIDE PF 287 MG/ML 10 ML VIAL (for RAD MRI) IV PUSH ONE (18:15)
--- NOTE | 2017-03-26 20:05 | RADRPT ---
EXAM DATE/TIME: 03/26/2017 18:59 [facility] COMPARISON: No previous studies available for comparison. INDICATIONS : Psychosis. CONTRAST: 9 cc Omniscan (gadodiamide) IV MEDICAL HISTORY : None. SURGICAL HISTORY : section. Tonsillectomy. ENCOUNTER: Initial ACUITY: 1 day PAIN SCORE: 0/10 LOCATION: cranial TECHNIQUE: Multiplanar, multisequence MRI of the brain was performed both prior to and following the administrat ion of paramagnetic contrast. FINDINGS: CEREBRUM: The ventricles are normal for age. No evidence of midline shift, mass lesion, hemorrhage or acute in farction. No extraaxial fluid collections are seen. The pituitary gland and suprasellar cistern are normal in configuration. WHITE MATTER: No significant signal abnormalities are seen in the white matter. POSTERIOR FOSSA: The cerebellum and brainstem are intact. The 4th ventricle is midline. The cerebellopontine angle is unremarkable. The cerebellar tonsils are normal in position. DIFFUSION IMAGING: No focal areas of restricted diffusion are seen. No evidence of acute infarction. EXTRACRANIAL: The visualized portions of the orbits and paranasal sinuses are unremarkable. POST-CONTRAST: No abnormal areas of parenchymal or dural enhancement. No evidence of blood-brain barrier breakdown. CONCLUSION: Normal examination for a patient of this age. Yonis Garay MD on March 26, 2017 at 20:01 Board Certified Radiologist. This report was verified electronically.
[2017-03-27 05:52] VITALS: BP 93/61; PULSE 80; RESP 18; TEMP 97.9; O2SAT 95
[2017-03-27 07:30] LABS: CHLAMYDIA PCR NOT DETECTED (NOT DETECT); NEISSERIA PCR NOT DETECTED (NOT DETECT)
[2017-03-27] MEDS: NITROFURANTOIN MONOHYD MACROCR 100 MG CAP PO SCH ×2 (08:08→16:28)
[2017-03-27] MEDS ORDERED: CHOLECALCIFEROL (VIT D3) 1000 UNIT TAB PO SCH (09:00)
--- NOTE | 2017-03-27 09:11 | HHI.PR ---
Subjective Remarks Follow up on patient with UTI, IVDU. Patient seen and examined. Patient complaining of dysuria. Denies any fever or chills. Denies any chest pain or dyspnea. Denies any nausea, vomiting or abdominal pain. Objective Vitals Vital Signs Date Time Temp Pulse Resp B/P (MAP) Pulse Ox O2 Delivery O2 Flow Rate FiO2 03/27/17 05:52 97.9 80 18 93/61 (72) 95 03/26/17 17:23 98.6 18 100/49 (66) 97 I/O 03/26/17 03/26/17 03/26/17 03/27/17 03/27/17 03/27/17 07:00 15:00 23:00 07:00 15:00 23:00 Intake Total 360 ml 480 ml Balance 360 ml 480 ml Intake Oral 360 ml 480 ml Result Diagram: 03/26/17 1100 03/26/17 1100 Imaging Last Impressions Brain MRI 03/26/17 0000 Signed Impressions: Service Date/Time: Sunday, March 26, 2017 18:59 - CONCLUSION: Normal examination for a patient of this age. Yonis Garay MD Objective Remarks GENERAL: Well-nourished, well-developed disheveled malodorous female patient in [facility]. Sleeping but easily awakens to voice. SKIN: Warm and dry. HEAD: Normocephalic. Atraumatic. EYES: EOMI. No scleral icterus. No injection or drainage. ENT: No nasal bleeding or discharge. Mucous membranes pink and moist. NECK: Trachea midline. CARDIOVASCULAR: Regular rate and rhythm. S1, S2 noted. No murmur appreciated. RESPIRATORY: Nonlabored. Clear to auscultation. Breath sounds equal bilaterally. GASTROINTESTINAL: Abdomen soft, non-tender, nondistended. Normoactive bowel sounds x4. MUSCULOSKELETAL: No obvious deformities. Extremities without clubbing, cyanosis , or edema. NEUROLOGICAL: Awake and alert. Moves all extremities spontaneously. Nonfocal. Minimal speech. PSYCHIATRIC: Calm, cooperative. Medications and IVs Current Medications Medications (Trade) Dose Ordered Sig/Jose Route Start Time Stop Time Status Last Admin (Ativan) 1 mg Q6H PRN PO 03/25/17 16:15 03/26/17 20:17 (Ativan Inj) 1 mg Q6H PRN IM 12/11/17 16:15 (Tylenol) 650 mg Q4H PRN PO 03/25/17 16:15 (Milk Of Magnesia Liq) 30 ml DAILY PRN PO 03/25/17 16:15 (Mag-Al Plus Susp Liq) 30 ml Q6H PRN PO 03/25/17 16:15 (Macrobid) 100 mg BIDPC PO 03/26/17 18:00 03/27/17 08:08 (Vitamin D3) 2,000 units DAILY PO 03/28/17 09:00 (Vitamin D3) 1,000 units ONCE ONCE PO 03/27/17 09:15 03/27/17 09:16 A/P Assessment and Plan 26yo female with PMHX of IVDU, hepatitis C and seizures starting one month ago admitted with brief psychotic episodes. Psychosis - Management per psychiatric team - MRI normal - TSH WNL, B12 461, HIV negative, RPR non reactive UTI - symptomatic - chlamydia and gonorrhea not detected - patient currently on Macrobid. UCX (+)E coli sensitive to Macrobid. Continue. Hepatitis C IVDU Marijuana use - discussed importance of cessation - standard precautions - hepatitis profile pending/ordered by primary team Transaminitis - mild - suspect secondary to above Hx of seizure disorder, new onset one month ago - EEG to be done today - seizure precautions Vitamin D deficiency - continue po vitamin D repletion - patient will need to follow up with PCP as outpatient DVT prophylaxis - patient is ambulatory Discussed with nursing staff, patient and Nesha Grayson Mar 27, 2017 09:11
[2017-03-27] MEDS ORDERED: CHOLECALCIFEROL (VIT D3) 1000 UNIT TAB PO ONE (09:15)
--- NOTE | 2017-03-27 11:10 | HHI.PYPN ---
Subjective Chief Complaint: Psychosis Remarks Patient seen and examined with counselor and nurse. Chart reviewed. Case discussed with counselor and nurse. Voip Technician relates that mother has called and alleged patient is continuing to call her and is making threats; I will institute outgoing phone restrictions x 24 hours for this now recurrent issue. Patient no reported behavioral problem overnight from nursing standpoint except she was noted to speak with an accent (she said Slovenian) at one point. On my exam, patient is initially calm but quite psychotic. She is affecting some sort of accent, although it is difficult to place. She relates that she is trying to protect her daughter Yessica from someone named "Brian or Warren , he goes by [employer] too." She says that Brian is trying to hypnotize patient and alleges that Brian authored the disturbing poems in her belongings, and patient merely copied them. Besides this specific delusion she is quite paranoid generally. Affect is dysphoric, and the patient reports that she feels upset because no one believes her about Brian and the hypnosis. She denies SI/HI but seems unreliable to contract for safety. Patient becomes quite angry when I try to discuss the differential diagnosis with her and storms off. No physical complaints. Requesting nicotine patch. Review of Systems ROS Limitations: Psychotic, Poor Historian Except as stated in HPI: all other systems reviewed are Neg Mental Status Examination Appearance: Disheveled Consciousness: Alert Orientation: Person, Place (at least) Motor Activity: Normal gait, Other (no abnormal motor movements noted) Speech: Unremarkable Language: Adequate Fund of Knowledge: Adequate Attention and Concentration: Adequate Memory: Impaired (some degree of confabulation) Mood: Other (upset) Affect: Irritable, Other (dysphoric) Thought Process & Associations: Circumstantial Thought Content: Bizarre thinking, Delusional Hallucination Type: Other (possibly receiving messages via "hypnosis") Delusion Type: Paranoid Suicidal Ideation: No (unreliable to contract for safety) Suicidal Plan: No Suicidal Intention: No Homicidal Ideation: No (unreliable to contract for safety) Homicidal Plan: No Homicidal Intention: No Insight: Poor Judgment: Poor Results Labs Item Value Date Time Erythrocyte Sedimentation Rate 4 mm/hr 03/27/17 0810 Vitamin B12 Level 461 PG/ML 03/26/17 1100 25-Hydroxy Vitamin D Total 18.4 ng/ML L 03/26/17 1100 Thyroid Stimulating Hormone 3rd Gen 0.780 uIU/ML 03/26/17 1100 Beta HCG, Qualitative LESS THAN 1 MIU/ML 03/26/17 1100 Rapid Plasma Reagin NON-REACTIVE 03/27/17 0810 HIV (1&2) Antibody NEGATIVE 03/27/17 0810 Chlamydia trachomatis DNA (PCR) NOT DETECTED 03/27/17 0500 Neisseria gonorrhoeae DNA (PCR) NOT DETECTED 03/27/17 0500 Urine culture reveals pansensitive E coli, continue Macrobid. EKG reveals sinus rhythm with a decreased OR interval. QTcH is 436 ms, not prolonged. Last Impressions Brain MRI 03/26/17 0000 Signed Impressions: Service Date/Time: Sunday, March 26, 2017 18:59 - CONCLUSION: Normal examination for a patient of this age. Yonis Garay MD Vitals/IOs Vital Signs Date Time Temp Pulse Resp B/P (MAP) Pulse Ox O2 Delivery O2 Flow Rate FiO2 03/27/17 05:52 97.9 80 18 93/61 (72) 95 03/25/17 18:27 Room Air Assessment & Plan Problem List: (1) Brief psychotic disorder ICD Codes: F23 - Brief psychotic disorder Status: Acute (2) Polysubstance abuse ICD Codes: F19.10 - Other psychoactive substance abuse, uncomplicated Assessment & Plan Patient's presentation today is frankly psychotic and concerning for primary psychotic disorder. Workup for medical/neurological causes of patient's symptoms is unrevealing so far, although patient is to go for EEG today. Symptoms are not improving as time from last illicit substance use increases, arguing against purely substance-induced psychosis. Given symptom burden, I think risk/benefit ratio favors empiric treatment with antipsychotic at this point. Start Risperdal 0.5mg BID with Haldol IM backup should she refuse the oral Risperdal. Follow-up outstanding labs and EEG. Hospitalist input noted and appreciated. Continue to monitor on the high acuity unit. Continue other medications and care as ordered. Justification for Cont. Inpt. Med changes. Impairment in reality construction. High risk for decompensation in less restrictive environment. Discharge Planning Case discussed with counselor. Request HC Surrog/Guard Advoc?: Yes Brian Sutton MD Mar 27, 2017 11:10
[2017-03-27] MEDS ORDERED: HALOPERIDOL LACTATE 5 MG/ML AMP IM PRN (11:15)
[2017-03-27] MEDS: NICOTINE 21 MG/24 HR PATCH T-DERMAL SCH (13:13)
[2017-03-27] MEDS: MAGNESIUM HYDROXIDE SUSP 30 ML CUP PO PRN (13:13)
--- NOTE | 2017-03-27 15:57 | EKG ---
Date Performed: 03/26/2017 Time Performed: 13:55:19 PTAGE: 26 years EKG: Sinus rhythm WITH SHORT CT INTERVAL BORDERLINE ECG NO PREVIOUS TRACING DOCTOR: Butch Cortes Interpretating Date/Time 03/27/2017 15:55:36
[2017-03-27 16:51] LABS: ANA SCREEN NEG (NEG)
[2017-03-27 17:05] VITALS: BP 108/67; PULSE 99; RESP 18; TEMP 99.3; O2SAT 99
--- NOTE | 2017-03-27 19:26 | MG ---
cc: ALYSHA MARTINS M.D. Lab No: Date: 03/27/2017 Age: Sex: F Race: REQUESTING PHYSICIAN Dr. Sutton INDICATION An EEG was obtained on this 26-year-old patient described as awake and drowsy and being evaluated for behavioral problems. DESCRIPTION The EEG is showing low and mid amplitude 10-12 per second alpha rhythms diffusely but maximum posteriorly. There are beta rhythms maximum centrally and frontally. There is artifact intermittently. The patient drowses and the beta activity becomes more dominant. Hyperventilation disclosed no abnormalities. Photic stimulation showed a bilateral driving response. INTERPRETATION Normal predominantly awake EEG. Alysha Martins MD OFC/KK /6:20 PM /7:07 PM
[2017-03-27] MEDS: LORazepam 1 MG TAB PO PRN (20:43)
[2017-03-28 06:10] VITALS: BP 94/56; PULSE 77; RESP 16; TEMP 98.3; O2SAT 99
[2017-03-28] MEDS: CHOLECALCIFEROL (VIT D3) 1000 UNIT TAB PO SCH (08:21)
[2017-03-28] MEDS: NICOTINE 21 MG/24 HR PATCH T-DERMAL SCH (08:21)
[2017-03-28] MEDS: NITROFURANTOIN MONOHYD MACROCR 100 MG CAP PO SCH ×2 (09:00→18:57)
[2017-03-28] MEDS: REMOVE OLD PATCH T-DERMAL SCH (09:00)
[2017-03-28] MEDS ORDERED: HALOPERIDOL LACTATE 5 MG/ML AMP IM PRN (15:45)
--- NOTE | 2017-03-28 15:52 | HHI.PYPN ---
Subjective Chief Complaint: Psychosis Remarks Patient seen and case discussed with nursing staff. Chart reviewed. Per nursing, patient screamed during visitation with parents. She did accept oral Risperdal. Today, patient presents with irritable affect. She continues to exhibit accented speech and when asked about this by the [address] livestock caretaker says that she is working on the voice she would affect for a telephone sex line. She remains paranoid and delusional. No evident side effects from medications. No physical complaints. Conducted in-person family meeting today with patient's mother (acting as HCS at the time) and her significant other prior to [address] this morning. We expand upon our telephone discussion yesterday in discussing workup so far, treatment plan for patient's psychiatric illness, need for chem dep treatment after stabilization of acute psychiatric illness and disposition planning. In total, ~30min was spent in consultation with mother and significant other. Review of Systems ROS Limitations: Psychotic, Poor Historian Other Limited ROS Mental Status Examination Appearance: Disheveled (grooming improved today) Consciousness: Alert Orientation: Person, Place (at least) Motor Activity: Other (no motoric abnormalities noted) Speech: Unremarkable Language: Adequate Fund of Knowledge: Adequate Attention and Concentration: Adequate Memory: Impaired (continue to suspect confabulation from psychosis) Mood: Angry Affect: Irritable Thought Process & Associations: Circumstantial Thought Content: Bizarre thinking, Delusional Hallucination Type: Other (appears internally preoccupied) Delusion Type: Paranoid Suicidal Ideation: No (no SI voiced) Homicidal Ideation: No (no HI voiced) Insight: Poor Judgment: Poor Results Labs Test 03/27/17 16:46 Hepatitis A IgM Antibody NEGATIVE Hepatitis B Surface Antigen NEGATIVE Hepatitis B Core IgM Antibody NEGATIVE Hepatitis C Antibody REACTIVE Date/Time Source Procedure Growth Status 03/25/17 14:28 Urine Clean Catch Urine Culture - Final Escherichia Coli Complete Labs reviewed. Hepatitis C antibody positive in patient with known history of hepatitis C. EEG read as normal. Vitals/IOs Vital Signs Date Time Temp Pulse Resp B/P (MAP) Pulse Ox O2 Delivery O2 Flow Rate FiO2 03/28/17 06:10 98.3 77 16 94/56 (69) 99 03/25/17 18:27 Room Air Labs reviewed. No evidence of worsened hypotension on Risperdal. Assessment & Plan Problem List: (1) Brief psychotic disorder ICD Codes: F23 - Brief psychotic disorder Status: Acute (2) Polysubstance abuse ICD Codes: F19.10 - Other psychoactive substance abuse, uncomplicated Assessment & Plan Titrate Risperdal to 0.75 mg twice daily to target psychotic symptoms with corresponding titration of Haldol IM backup dose. Continue to monitor on the high acuity unit. Continue other medications and care as ordered. Patient's case was presented to the [place], and the patient was retained on the unit by the livestock caretaker with appointment of a STEPHANIE guardian because of patient's hostility toward parents. Judge Chavez has also instructed the team to ensure patient's journal writings regarding her daughter are reported to DCF, and I have made a DCF report to [employer], ID#[id number]. Justification for Cont. Inpt. Impairment in reality construction. Med changes. High risk for decompensation in less restrictive setting. Discharge Planning Pending stabilization. Request HC Surrog/Guard Advoc?: Yes Brian Sutton MD Mar 28, 2017 15:52
[2017-03-28] MEDS: ACETAMINOPHEN 325 MG TAB PO PRN (16:45)
[2017-03-28 18:21] VITALS: BP 102/58; PULSE 76; RESP 16; TEMP 98.2; O2SAT 99
[2017-03-28] MEDS: risperiDONE 0.25 MG TAB PO SCH (20:47)
[2017-03-29 05:54] VITALS: BP 93/50; PULSE 67; RESP 16; TEMP 97.5; O2SAT 100
[2017-03-29] MEDS: MAGNESIUM HYDROXIDE SUSP 30 ML CUP PO PRN (08:41)
[2017-03-29] MEDS: CHOLECALCIFEROL (VIT D3) 1000 UNIT TAB PO SCH (08:42)
[2017-03-29] MEDS: risperiDONE 0.25 MG TAB PO SCH ×2 (08:42→20:37)
[2017-03-29] MEDS: NICOTINE 21 MG/24 HR PATCH T-DERMAL SCH (08:42)
[2017-03-29] MEDS: NITROFURANTOIN MONOHYD MACROCR 100 MG CAP PO SCH ×2 (08:42→17:51)
[2017-03-29] MEDS: REMOVE OLD PATCH T-DERMAL SCH (09:00)
--- NOTE | 2017-03-29 10:43 | HHI.PYPN ---
Subjective Chief Complaint: Psychosis Remarks Patient seen and examined with counselor and nurse. Chart reviewed. Case discussed in treatment team. Per nursing staff, patient out of room more. She is noted to be demanding and responds with anger when needs are not met. Nurse has also noted patient make allusions to other people being hypnotized. She also is noted to be giggling inappropriately at times and appears to be responding to internal stimuli. Patient is eating 100% of meals, but RN expressed concerns that patient is requesting liquids with cathartic effect, like prune juice and coffee. On my exam, patient complains of constipation. No BM in 2 days, and also says she is not passing flatus. She denies a history of laxative abuse or eating disordered behavior generally. She is irritable and guarded. She does not verbalize any frankly delusional material, nor can I elicit from her any material along the lines of previous delusions. She denies AVH. Denies SI/HI. Denies side effects from medications. Besides the constipation, no physical complaints. Review of Systems ROS Limitations: Psychotic, Poor Historian Except as stated in HPI: all other systems reviewed are Neg Mental Status Examination Appearance: Appropriate Consciousness: Alert Orientation: Person, Place Motor Activity: Other (no motoric abnormalities noted) Speech: Unremarkable Language: Adequate Fund of Knowledge: Adequate Attention and Concentration: Adequate Memory: Unremarkable Mood: Other (dysphoric) Affect: Irritable, Other (restricted) Thought Process & Associations: Linear Thought Content: Delusional Hallucination Type: Other (remains a little internally preoccupied) Delusion Type: Paranoid (?perhaps improving) Suicidal Ideation: No Homicidal Ideation: No Insight: Poor Judgment: Poor Results Labs Date/Time Source Procedure Growth Status 03/25/17 14:28 Urine Clean Catch Urine Culture - Final Escherichia Coli Complete Labs reviewed. No new labs. Vitals/IOs Vital Signs Date Time Temp Pulse Resp B/P (MAP) Pulse Ox O2 Delivery O2 Flow Rate FiO2 03/29/17 05:54 97.5 67 16 93/50 (64) 100 03/25/17 18:27 Room Air Assessment & Plan Problem List: (1) Brief psychotic disorder ICD Codes: F23 - Brief psychotic disorder Status: Acute (2) Polysubstance abuse ICD Codes: F19.10 - Other psychoactive substance abuse, uncomplicated Assessment & Plan Continue slow titration of Risperdal over weekend to target psychotic symptoms. Interval target dose is 3mg total daily dose. Plan for long-acting injectable as I do suspect a primary psychotic illness, perhaps with some overlying affective features. Check KUB [Update: read as no acute disease]; if negative will order bowel regimen as I do not see any BMs charted. Monitor for overuse of bowel regimen, but it is not unreasonable to believe that she is constipated from change in diet, medications, etc.. I will consult steward/stewardess chief cargo vessel to assess for possible eating disordered behavior and will check weights thrice weekly. Check BMP for electrolytes. Continue to monitor on inpatient unit. Continue other medications and care as ordered. Justification for Cont. Inpt. Medication changes. Impairment in reality construction, hopefully improving. High risk for decompensation in less restrictive environment. Discharge Planning Pending psychiatric stabilization. Possible discharge sometime next week. Request HC Surrog/Guard Advoc?: Yes Brian Sutton MD Mar 29, 2017 10:43
--- NOTE | 2017-03-29 12:46 | RADRPT ---
EXAM DATE/TIME: 03/29/2017 12:12 [facility] COMPARISON: No previous studies available for comparison. INDICATIONS : Pain for a couple of days. Obstruction. MEDICAL HISTORY : None. SURGICAL HISTORY : section. ENCOUNTER: Subsequent ACUITY: 3 days PAIN SCORE: 3/10 LOCATION: Bilateral Abdomen FINDINGS: Supine view of the abdomen was performed. The abdominal bowel gas pattern is normal. No abnormal ma sses, calcifications, or organomegaly is seen. The osseous structures are unremarkable. CONCLUSION: No acute disease. Blaise Quintana MD on March 29, 2017 at 12:43 Board Certified Radiologist. This report was verified electronically.
--- NOTE | 2017-03-29 12:59 | PD.TTN ---
Patient Problems 1. Discharge planning 2. Medication compliance 3. Knowledge deficit 4. Lack of coping skills Progress Toward Goals Provider Present: Dr. Amelia Sutton Provider Input: Pt is new to the unit and will be evaluated along with medication regiment to assess for any possible changes. 03/29- Pt medication regiment continues to be changed including titration of Risperdal and eventual implementation of long acting injection. Nurse(s) Present: Jesus Jarvis RN Nurse(s) Input: Pt is new and is being treated and monitored on unit. 03/29- Paula Carson RN Pt appears agitated, demanding, delusional and to be responding to internal stimuli on unit. Psychiatric Counselors Present: KAREN Dennison Psych Therapist Input: Pt is new and will be evaluated using biopsychosocial assessment. 03/29- Pt continues to appear delusional, paranoid, guarded, labile, demanding and uncooperative at times. She presents with limited coping and emotional regulation skills as evidenced by ongoing behavioral/emotional outbursts. She has limited insight into condition and need for care. She has been medication compliant recently but has been uncooperative previously. Pt states she will return to living with a man that she has before despite the fact that this seems like a poor discharge plan. Pt appears impuslive and with personality traits that may be hindering her progress as well. Group Spec/RT/OT/GOODWIN Present: SEA Ying, CHRISTA Raya Group Spec/RT/OT/GOODWIN Input: Pt will be evaluated as she is new to the unit. Discharge Plan SMA Discharge plan will be formulated as treatment continues on unit. Documentation Scribe: KAREN Dennison Jonathan LMHC Mar 29, 2017 12:59
[2017-03-29] MEDS ORDERED: BISACODYL EC 5 MG TABEC PO PRN (14:45)
[2017-03-29 18:03] VITALS: BP 100/62; PULSE 98; RESP 18; TEMP 98; O2SAT 100
[2017-03-29] MEDS: DOCUSATE SODIUM 100 MG CAP PO SCH (20:37)
[2017-03-30 06:59] VITALS: BP 111/75; PULSE 94; RESP 19; TEMP 98.7; O2SAT 97
[2017-03-30] MEDS: DOCUSATE SODIUM 100 MG CAP PO SCH ×2 (08:20→20:04)
[2017-03-30] MEDS: risperiDONE 0.25 MG TAB PO SCH ×2 (08:20→20:04)
[2017-03-30] MEDS: NITROFURANTOIN MONOHYD MACROCR 100 MG CAP PO SCH ×2 (08:20→17:39)
[2017-03-30] MEDS: NICOTINE 21 MG/24 HR PATCH T-DERMAL SCH (08:20)
[2017-03-30] MEDS: REMOVE OLD PATCH T-DERMAL SCH (08:20)
[2017-03-30] MEDS: CHOLECALCIFEROL (VIT D3) 1000 UNIT TAB PO SCH (08:20)
[2017-03-30 10:33] LABS: OBMETHADONE UR NEG (NEG); PHENCYCLIDINE URINE NEG (NEG)
[2017-03-30 10:34] LABS: BATH SALTS (MDPV) UR NEG (NEG); ECSTASY (MDMA) UR NEG (NEG); HEROIN (6-ACETYLMORPHINE) UR NEG (NEG); K2 SPICE UR NEG (NEG); OBGABAPENTIN UR NEG (NEG); OBHYDROMORPHONE U NEG (NEG)
[2017-03-30 11:45] LABS: BICARBONATE 30.6 MEQ/L (21.0-32.0); POTASSIUM 4.1 MEQ/L (3.5-5.1)
[2017-03-30 17:17] VITALS: BP 107/69; PULSE 101; RESP 18; TEMP 98.2; O2SAT 100
--- NOTE | 2017-03-30 17:28 | HHI.PYPN ---
Subjective Chief Complaint: Psychosis Remarks Patient was seen and case discussed with nursing. Patient is pleasant and cooperative with exam. No watery eyes patient admits to crying given she misses her daughter and wants to be discharged before Katia. Patient does minimizes her psychosis. Per nursing, she is internally preoccupied and was seen running around outside laughing to herself. Claims she no longer thinks that her daughter is in danger. Denies suicidal homicidal ideation intent or plan. Tolerating medications well Mental Status Examination Appearance: Appropriate Consciousness: Alert Orientation: Person, Place Motor Activity: Other (no motoric abnormalities noted) Speech: Unremarkable Language: Adequate Fund of Knowledge: Adequate Attention and Concentration: Adequate Memory: Unremarkable Mood: Other (dysphoric) Affect: Irritable, Other (restricted) Thought Process & Associations: Linear Thought Content: Delusional Hallucination Type: Other (remains a little internally preoccupied) Delusion Type: Paranoid (?perhaps improving) Suicidal Ideation: No Homicidal Ideation: No Insight: Poor Judgment: Poor Results Labs Test 03/30/17 10:27 Blood Urea Nitrogen 9 MG/DL Creatinine 0.73 MG/DL Random Glucose 76 MG/DL Calcium Level 8.9 MG/DL Sodium Level 138 MEQ/L Potassium Level 4.1 MEQ/L Chloride Level 101 MEQ/L Carbon Dioxide Level 30.6 MEQ/L Anion Gap 6 MEQ/L Estimat Glomerular Filtration Rate 95 ML/MIN Date/Time Source Procedure Growth Status 03/25/17 14:28 Urine Clean Catch Urine Culture - Final Escherichia Coli Complete Vitals/IOs Vital Signs Date Time Temp Pulse Resp B/P (MAP) Pulse Ox O2 Delivery O2 Flow Rate FiO2 03/30/17 17:17 98.2 101 18 107/69 (82) 100 Assessment & Plan Problem List: (1) Brief psychotic disorder ICD Codes: F23 - Brief psychotic disorder Status: Acute (2) Polysubstance abuse ICD Codes: F19.10 - Other psychoactive substance abuse, uncomplicated Assessment & Plan Continue Risperdal titration Justification for Cont. Inpt. Patient would decompensate in a less restrictive setting Request HC Surrog/Guard Advoc?: Yes Kuldip Stark DO Mar 30, 2017 17:28
[2017-03-30] MEDS: LORazepam 1 MG TAB PO PRN (20:03)
[2017-03-31 05:52] VITALS: BP 99/58; PULSE 64; RESP 16; TEMP 97.9; O2SAT 98
[2017-03-31] MEDS: REMOVE OLD PATCH T-DERMAL SCH (09:00)
[2017-03-31] MEDS: CHOLECALCIFEROL (VIT D3) 1000 UNIT TAB PO SCH (09:17)
[2017-03-31] MEDS: risperiDONE 0.25 MG TAB PO SCH ×2 (09:17→21:23)
[2017-03-31] MEDS: DOCUSATE SODIUM 100 MG CAP PO SCH ×2 (09:17→21:23)
[2017-03-31] MEDS: NITROFURANTOIN MONOHYD MACROCR 100 MG CAP PO SCH (09:17)
[2017-03-31] MEDS: NICOTINE 21 MG/24 HR PATCH T-DERMAL SCH (09:17)
[2017-03-31] MEDS: ACETAMINOPHEN 325 MG TAB PO PRN (10:34)
--- NOTE | 2017-03-31 12:37 | HHI.PYPN ---
Subjective Chief Complaint: Psychosis Remarks Patient was seen and case discussed with nursing. Nursing is concerned that Ativan is being given for sleep. And it appears that it has instead of anxiety. Patient has a history of substance abuse and this treatment is not ideal. Chief complaint today is insomnia. Patient says she is not depressed but appears quite blunted with psychomotor retardation. Seclusive to room. Denies any psychotic behavior. Denies suicidal or homicidal ideation intent or plan Mental Status Examination Appearance: Appropriate Consciousness: Alert Orientation: Person, Place Motor Activity: Other (no motoric abnormalities noted) Speech: Unremarkable Language: Adequate Fund of Knowledge: Adequate Attention and Concentration: Adequate Memory: Unremarkable Mood: Sad Affect: Sad, Other (restricted) Thought Process & Associations: Linear Thought Content: Appropriate Hallucination Type: None Delusion Type: None Suicidal Ideation: No Suicidal Plan: No Suicidal Intention: No Homicidal Ideation: No Homicidal Plan: No Homicidal Intention: No Insight: Poor Judgment: Poor Results Labs Date/Time Source Procedure Growth Status 03/25/17 14:28 Urine Clean Catch Urine Culture - Final Escherichia Coli Complete Vitals/IOs Vital Signs Date Time Temp Pulse Resp B/P (MAP) Pulse Ox O2 Delivery O2 Flow Rate FiO2 03/31/17 05:52 97.9 64 16 99/58 (72) 98 Assessment & Plan Problem List: (1) Brief psychotic disorder ICD Codes: F23 - Brief psychotic disorder Status: Acute (2) Polysubstance abuse ICD Codes: F19.10 - Other psychoactive substance abuse, uncomplicated Assessment & Plan DC Ativan. Give trazodone 50 mg by mouth daily at bedtime Justification for Cont. Inpt. Patient will decompensate in a less restrictive setting Request HC Surrog/Guard Advoc?: Yes Kuldip Stark DO Mar 31, 2017 12:37
[2017-03-31] MEDS ORDERED: traZODone HCL 50 MG TAB PO SCH (21:00)
[2017-03-31 21:01] VITALS: BP 124/74; RESP 16; TEMP 97.8
[2017-04-01] MEDS: ACETAMINOPHEN 325 MG TAB PO PRN ×2 (00:28→19:52)
[2017-04-01 06:15] VITALS: BP 104/47; PULSE 56; RESP 16; TEMP 97.9; O2SAT 96
[2017-04-01] MEDS: DOCUSATE SODIUM 100 MG CAP PO SCH ×2 (09:05→21:13)
[2017-04-01] MEDS: risperiDONE 0.25 MG TAB PO SCH (09:06)
[2017-04-01] MEDS: CHOLECALCIFEROL (VIT D3) 1000 UNIT TAB PO SCH (09:08)
[2017-04-01] MEDS: NICOTINE 21 MG/24 HR PATCH T-DERMAL SCH (09:12)
[2017-04-01] MEDS: REMOVE OLD PATCH T-DERMAL SCH (09:13)
[2017-04-01] MEDS ORDERED: risperiDONE EXT REL INJ 12.5 MG/2 ML VIAL IM ONE (13:15)
--- NOTE | 2017-04-01 13:28 | HHI.PYPN ---
Subjective Chief Complaint: Psychosis Remarks Patient seen and examined with nurse. Chart reviewed. Case discussed with nursing staff who reports patient is cooperative if somewhat flat and withdrawn. No evidence of laxative abuse. On my examination today, the patient reports that she continues to struggle with poor sleep. She says that Remeron has worked better in the past and trazodone for sleep. Overall seems more appropriate and clear thinking on exam. She denies any SI or HI. Denies any audiovisual hallucinations. Denies any side effects from medications. I have recommended long-acting injectable antipsychotic. No physical complaints. I did on 2 separate occasions and with patient's permission endeavor to reach out the patient's mother for collateral information as family apparently visited with patient over the weekend. I have left a voicemail requesting a call back. Review of Systems Except as stated in HPI: all other systems reviewed are Neg Mental Status Examination Appearance: Appropriate Consciousness: Alert Orientation: Person, Place (at least) Motor Activity: Other (no hand tremor, no cogwheeling, no other motor abnormalities noted.) Speech: Unremarkable Language: Adequate Fund of Knowledge: Adequate Attention and Concentration: Adequate Memory: Unremarkable Mood: Appropriate Affect: Blunt Thought Process & Associations: Intact, Logical, Linear Thought Content: Appropriate Hallucination Type: None Delusion Type: None Suicidal Ideation: No Suicidal Plan: No Suicidal Intention: No Homicidal Ideation: No Homicidal Plan: No Homicidal Intention: No Insight: Poor Judgment: Poor Results Labs Date/Time Source Procedure Growth Status 03/25/17 14:28 Urine Clean Catch Urine Culture - Final Escherichia Coli Complete Labs reviewed. Extended urine toxicology resulted and is positive only for cannabinoids. Vitals/IOs Vital Signs Date Time Temp Pulse Resp B/P (MAP) Pulse Ox O2 Delivery O2 Flow Rate FiO2 04/01/17 06:15 97.9 56 16 104/47 (66) 96 Intake and Output 04/01/17 04/01/17 04/02/17 08:00 16:00 00:00 Intake Total 240 ml Balance 240 ml Assessment & Plan Problem List: (1) Brief psychotic disorder ICD Codes: F23 - Brief psychotic disorder Status: Acute (2) Polysubstance abuse ICD Codes: F19.10 - Other psychoactive substance abuse, uncomplicated Assessment & Plan Patient's psychosis seems considerably improved with Risperdal 1 mg twice daily. I will initiate Risperdal Consta 12.5mg IM and continue oral Risperdal supplementation. Replace trazodone with Remeron per patient preference. Continue to monitor on the inpatient unit. Continue other medications and care as ordered. Justification for Cont. Inpt. Med changes. Discharge Planning Anticipate discharge within the next day or two. Request HC Surrog/Guard Advoc?: Yes Brian Sutton MD Apr 01, 2017 13:28
[2017-04-01 17:51] VITALS: BP 121/55; PULSE 80; RESP 17; TEMP 98.1; O2SAT 100
[2017-04-01] MEDS: risperiDONE 1 MG TAB PO SCH (21:13)
[2017-04-01] MEDS: MIRTAZAPINE 15 MG TAB PO SCH (21:13)
[2017-04-02 06:11] VITALS: BP 104/55; PULSE 72; RESP 17; TEMP 98.1; O2SAT 98
[2017-04-02] MEDS: REMOVE OLD PATCH T-DERMAL SCH (09:00)
[2017-04-02] MEDS: DOCUSATE SODIUM 100 MG CAP PO SCH ×2 (09:06→21:00)
[2017-04-02] MEDS: NICOTINE 21 MG/24 HR PATCH T-DERMAL SCH (09:06)
[2017-04-02] MEDS: CHOLECALCIFEROL (VIT D3) 1000 UNIT TAB PO SCH (09:06)
[2017-04-02] MEDS: risperiDONE 1 MG TAB PO SCH ×2 (09:06→21:01)
[2017-04-02] MEDS ORDERED: MIRTA15 PO (12:47)
[2017-04-02] MEDS ORDERED: DOCU1CAP39 PO (12:47)
[2017-04-02] MEDS ORDERED: CHOL1000 PO (12:47)
[2017-04-02] MEDS ORDERED: RISP12.5 IM (12:47)
[2017-04-02] MEDS ORDERED: RISP1 PO (12:47)
--- NOTE | 2017-04-02 12:48 | HHI.DS ---
Psychiatry Discharge Summary Advance Directive: No Reason Not Provided: NONE Mental Health AdvanceDirective: No Health Care Proxy: No Admission Admission Date Mar 25, 2017 at 16:04 Admission Diagnosis: Brief History From Dr. Abbasi's H&P: 26-year-old female brought in under a Rios act initiated by law enforcement for what appears to be bizarre thinking and homicidal remarks. Apparently the patient was at her mother's house this morning and appeared to be under the influence of drugs and in an altered state of mind. (The patient's mother reportedly has power of trial attorney over the patient.) The patient had written down in a diary like book to find Yessica, her daughter and kill her. The patient had also written other strange comments about hurting Yessica, who is the 4-year- old daughter of the patient. One of the bizarre comments made by the patient's , in her writings was to smell the vagina of her 4-year-old daughter. Upon interview, the patient is a very poor historian. She is highly emotionally distraught. She is speaking very rapidly and at times in a pressured manner at this physician. She is screaming, crying, and refusing to participate in the interview. This physician understands from the patient's stepfather the patient has used drugs (intravenously) approximately 2 days ago. The patient is positive for cannabinoids. The patient's daughter was recently given to the patient's paternal grandparents. The patient is denying writing these bizarre comments but these comments are contained amongst the patient's belongings, and what appears to be the patient's diary like book. On my examination today: Patient seen and examined with nurse. Chart reviewed. Case discussed with nursing staff. Case also discussed in treatment team The patient did receive Geodon, Ativan and Benadryl yesterday evening and reportedly has been somewhat sedated since. She is able to participate in interview with me this morning. She continues to make bizarre statements, saying "I didn't do nothing wrong. I showed them a picture with the Chelsea to protect my daughter from insanity. " Alexithymic with respect to mood. She denies SI/HI but seems unreliable contract for safety. Denies audiovisual hallucinations but appears somewhat internally stimulated still. She remains paranoid about people trying to get at her daughter. She reports that sleep and appetite are fair. Besides some mild sedation, no side effects from medications overnight. Complains of vaginal discharge and malodor. No other physical complaints. Past psychiatric history: Patient is likely an unreliable historian. She is unsure of previous psychiatric diagnoses. She is not currently under the care of a psychiatrist. She reports a previous suicide attempt "while I was drunk" several years ago. Family history: Patient is unsure of family psychiatric history. Chemical dependency history: The patient reports that she uses methamphetamine "daily, if I can." Social history: Patient reports she has a 4 year-old daughter. She is evasive on her current living condition, noting only "I have a place to stay." Patient reports that she dropped out of the 11th grade. She does not work. She has no income. She denies any access to guns or firearms. Accompanying the patient is a journal and legal notepad with writing alleged to be by patient. I have reviewed these documents. They consist of tightly packed , hypergraphic writing that is rambling and difficult to follow. It includes references to drug use and also poems. One of these poems seems to be about patient's daughter, Yessica, and reads in part "Find Yessica and make her cum / Find Yessica and make her cunt / Cum 5 times in her butt." Given patient's degree of psychiatric impairment, I have obtained lateral from patient's mother and presumptive healthcare surrogate Margareth Zambrano over the phone. Ms. Zambrano is understandably quite overwrought and upset by patient's condition, and this does degrade the quality of the collateral somewhat. From what I can gather, patient was living independently and holding down a job until about 1.5 years ago when she became volitionally homeless. Patient reportedly provided no explanation for this decision. Patient also was noted to engage in use of drugs, and Ms. Zambrano has found drug paraphernalia among patient's belongings. Ms. Zambrano notes that the patient has been hallucinating. She has reported multiple miscarriages to mother and has another child other than Yessica while at [employer], the whereabouts of whom is unknown. Ms. Zambrano notes that patient has no prior history of mental illness. There is a family history of BPAD or perhaps schizophrenia in patient's biological father. I discuss treatment plan with Ms. Zambrano in her role as presumptive HCS. Tobacco Use In Past 30 Days: 5 or More Cigarettes/Day Alcohol Use: Monthly or Less Results Blood Pressure 104 / 55 Vital Signs Date Time Temp Pulse Resp B/P (MAP) Pulse Ox O2 Delivery O2 Flow Rate FiO2 04/02/17 06:11 98.1 72 17 104/55 (71) 98 Laboratory Results Test 03/26/17 11:00 Cholesterol Level 189 MG/DL (120-200) HDL Cholesterol 63.1 MG/DL (40.0-60.0) Hemoglobin A1c 5.6 % (4.3-6.0) LDL Cholesterol 113 MG/DL (0-99) Triglycerides Level 64 MG/DL (42-150) Imaging Last Impressions Abdomen X-Ray 03/29/17 0000 Signed Impressions: Service Date/Time: Wednesday, March 29, 2017 12:12 - CONCLUSION: No acute disease. Blaise Quintana MD Brain MRI 03/26/17 0000 Signed Impressions: Service Date/Time: Sunday, March 26, 2017 18:59 - CONCLUSION: Normal examination for a patient of this age. Yonis Garay MD Medications Approp Antipsych med options 1 - Minimum of three failed multiple trials of monotherapy. 2 - Documented plan to taper to monotherapy due to previous use of multiple meds OR cross-taper in progress at D/C. 3 - Documentation of augmentation of Clozapine. 4 - Justification other than those listed in allowable values 1-3, document here : Discharge Pt Condition on Discharge: Stable Discharge Disposition: Discharge Home Discharge Instructions Diet Instructions: As Tolerated, No Restrictions Activities you can perform: Weight Bearing as Janice Mental Status Examination Appearance: Appropriate Consciousness: Alert Orientation: Person, Place (at least) Motor Activity: Other (no hand tremor, no cogwheeling, no other motor abnormalities noted.) Speech: Unremarkable Language: Adequate Fund of Knowledge: Adequate Attention and Concentration: Adequate Memory: Unremarkable Mood: Appropriate Affect: Blunt Thought Process & Associations: Intact, Logical, Linear Thought Content: Appropriate Hallucination Type: None Delusion Type: None Suicidal Ideation: No Suicidal Plan: No Suicidal Intention: No Homicidal Ideation: No Homicidal Plan: No Homicidal Intention: No Insight: Poor Judgment: Poor Discharge/Advance Care Plan Health Problems: (1) Brief psychotic disorder (2) Polysubstance abuse Goals to promote your health * To prevent worsening of your condition and complications * To maintain your health at the optimal level Directions to meet your goals Take your medications as prescribed Follow your dietary instruction Follow activity as directed Keep your appointments as scheduled Take your immunizations and boosters as scheduled If your symptoms worsen call your PCP, if no PCP go to Urgent Care Center or Emergency Room For 05/11 questions related to your inpatient stay or results of tests pending at discharge, please contact Dr. Brian Sutton at Smoking is Dangerous to Your Health. Avoid second hand smoking Brian Sutton MD Apr 02, 2017 12:48
[2017-04-02] MEDS: ACETAMINOPHEN 325 MG TAB PO PRN (12:56)
--- NOTE | 2017-04-02 16:04 | HHI.PYPN ---
Subjective Chief Complaint: Psychosis Remarks Patient seen and examined with nurse. Chart reviewed. Case discussed in treatment team with counselor and occupational therapist. Counselor notes that the patient is much improved in groups and is reality based in her conversation. Occupational therapy has also noted an improvement. On my examination today, the patient reports that she slept better with the addition of Remeron. She tells me she was somewhat groggy in the morning from this medication but says that this is typical of when she has taken it in the past. She denies any suicidal or homicidal ideation. She denies any audiovisual hallucinations. She is requesting discharge today and says that she has an ex- boyfriend who will take her in. She denies side effects from medications. No physical complaints. My plan had been to discharge this patient today because, although she would benefit from additional inpatient observation in my judgement, I felt that she no longer met involuntary criteria based on staff report and based on her presentation this morning. However, I was notified by RN ~4pm today that the patient was escalating, I suspect because she had not been discharged as swiftly as she wished, and was threatening peers. I have ordered patient medicated with Ativan 1mg PO once for anxious distress. Based on this new behavior, I will cancel her discharge for today and observe overnight. Review of Systems Except as stated in HPI: all other systems reviewed are Neg Mental Status Examination Appearance: Appropriate Consciousness: Alert Orientation: x4 Motor Activity: Other (no motor abnormalities noted) Speech: Unremarkable Language: Adequate Fund of Knowledge: Adequate Attention and Concentration: Adequate Memory: Unremarkable Mood: Appropriate, Good Affect: Appropriate Thought Process & Associations: Intact, Logical, Goal directed, Linear Thought Content: Appropriate Hallucination Type: None Delusion Type: None Suicidal Ideation: No Suicidal Plan: No Suicidal Intention: No Homicidal Ideation: No Homicidal Plan: No Homicidal Intention: No Insight: Poor Judgment: Poor Mental Status Exam Remarks MSE based on my interview with the patient this morning. Results Labs Date/Time Source Procedure Growth Status 03/25/17 14:28 Urine Clean Catch Urine Culture - Final Escherichia Coli Complete Labs reviewed. No new labs. Vitals/IOs Vital Signs Date Time Temp Pulse Resp B/P (MAP) Pulse Ox O2 Delivery O2 Flow Rate FiO2 04/02/17 06:11 98.1 72 17 104/55 (71) 98 Assessment & Plan Problem List: (1) Brief psychotic disorder ICD Codes: F23 - Brief psychotic disorder Status: Acute (2) Polysubstance abuse ICD Codes: F19.10 - Other psychoactive substance abuse, uncomplicated Assessment & Plan Ativan 1 mg by mouth once as noted above. Titrate Risperdal to 1.5 mg twice daily. Patient received Risperdal Consta yesterday. Continue to monitor on the inpatient unit overnight and reassess for appropriateness for discharge tomorrow based on progress overnight. Continue other medications and care as ordered. Justification for Cont. Inpt. Concern for impairment in safety based on new behaviors observed this afternoon. Medication changes. Discharge Planning Pending outcome of further observation Request HC Surrog/Guard Advoc?: Yes Brian Sutton MD Apr 02, 2017 16:04
[2017-04-02] MEDS ORDERED: LORazepam 1 MG TAB PO ONE (16:15)
[2017-04-02] MEDS ORDERED: PILL SPLITTER OTHER PRN (16:15)
[2017-04-02] MEDS: MIRTAZAPINE 15 MG TAB PO SCH (21:01)
[2017-04-03 06:21] VITALS: BP 109/67; PULSE 94; RESP 18; TEMP 97.9; O2SAT 98
--- NOTE | 2017-04-03 08:21 | HHI.PYPN ---
Subjective Chief Complaint: Psychosis Remarks Patient seen and examined with nurse. Chart reviewed. Case discussed with nursing staff. No further acting out after the patient was transferred to the high acuity unit. Slept soundly overnight. Case discussed with counselor. On my examination today, the patient takes limited ownership for her behavior yesterday, placing all of the blame on "this one chick who always instigates me. " She does say "it was not a correct way to act out." Denies any SI or HI. Denies AVH. Somewhat petulant in the interaction. Denies side effects from medications. Offered family meeting but patient declines. Review of Systems Except as stated in HPI: all other systems reviewed are Neg Mental Status Examination Appearance: Appropriate Consciousness: Alert Orientation: x4 Motor Activity: Other (no motor abnormalities noted) Speech: Unremarkable Language: Adequate Fund of Knowledge: Adequate Attention and Concentration: Adequate Memory: Unremarkable Mood: Other (calm) Affect: Blunt Thought Process & Associations: Intact, Logical, Goal directed, Linear Thought Content: Appropriate Hallucination Type: None Delusion Type: None Suicidal Ideation: No Suicidal Plan: No Suicidal Intention: No Homicidal Ideation: No Homicidal Plan: No Homicidal Intention: No Insight: Poor Judgment: Poor Results Labs Date/Time Source Procedure Growth Status 03/25/17 14:28 Urine Clean Catch Urine Culture - Final Escherichia Coli Complete Labs reviewed. No new labs. Vitals/IOs Vital Signs Date Time Temp Pulse Resp B/P (MAP) Pulse Ox O2 Delivery O2 Flow Rate FiO2 04/03/17 06:21 97.9 94 18 109/67 (81) 98 Assessment & Plan Problem List: (1) Brief psychotic disorder ICD Codes: F23 - Brief psychotic disorder Status: Acute (2) Polysubstance abuse ICD Codes: F19.10 - Other psychoactive substance abuse, uncomplicated Assessment & Plan Psychosis remains well-controlled. Acting out behavior yesterday likely related to dysfunctional coping/personality factors. Continue oral Risperdal supplementing Risperdal Maggy ordered. I have offered to try to transition the patient back to the lower acuity unit, but she says that she is comfortable where she is at and declines transfer. Continue other medications and care as ordered. Justification for Cont. Inpt. Monitoring for further behavioral disturbance Discharge Planning If patient remains in behavioral control, anticipate discharge tomorrow, . Request HC Surrog/Guard Advoc?: Yes Chaiffetz,Brian B. MD Apr 03, 2017 08:21
[2017-04-03] MEDS: REMOVE OLD PATCH T-DERMAL SCH (09:00)
[2017-04-03] MEDS: CHOLECALCIFEROL (VIT D3) 1000 UNIT TAB PO SCH (09:00)
[2017-04-03] MEDS: DOCUSATE SODIUM 100 MG CAP PO SCH ×2 (09:00→20:49)
[2017-04-03] MEDS: risperiDONE 1 MG TAB PO SCH ×2 (09:00→20:49)
[2017-04-03] MEDS: NICOTINE 21 MG/24 HR PATCH T-DERMAL SCH (09:00)
[2017-04-03] MEDS: ACETAMINOPHEN 325 MG TAB PO PRN ×2 (13:40→19:23)
[2017-04-03 16:03] VITALS: BP 123/77; PULSE 106; RESP 18; TEMP 98; O2SAT 99
[2017-04-03] MEDS ORDERED: BENZOCAINE 7.5% ORAL GEL 9.4 GM TUBE OROPHARYNG PRN (17:30)
[2017-04-03] MEDS: MIRTAZAPINE 15 MG TAB PO SCH (20:48)
[2017-04-04] MEDS: ACETAMINOPHEN 325 MG TAB PO PRN ×2 (03:00→12:16)
[2017-04-04 05:41] VITALS: BP 128/77; PULSE 87; RESP 17; TEMP 98.2; O2SAT 97
[2017-04-04] MEDS: DOCUSATE SODIUM 100 MG CAP PO SCH (08:07)
[2017-04-04] MEDS: CHOLECALCIFEROL (VIT D3) 1000 UNIT TAB PO SCH (08:08)
[2017-04-04] MEDS: risperiDONE 1 MG TAB PO SCH (08:08)
[2017-04-04] MEDS: NICOTINE 21 MG/24 HR PATCH T-DERMAL SCH (08:14)
[2017-04-04] MEDS: REMOVE OLD PATCH T-DERMAL SCH (08:16)
--- NOTE | 2017-04-04 11:30 | HHI.DS ---
Psychiatry Discharge Summary Inpatient Psychiatric care?: Yes Advance Directive: No Reason Not Provided: NONE Mental Health AdvanceDirective: No Health Care Proxy: No Admission Admission Date Mar 25, 2017 at 16:04 Admission Diagnosis: (1) Brief psychotic disorder ICD Code: F23 - Brief psychotic disorder Brief History 26-year-old female brought in under a Rios act initiated by law enforcement for what appears to be bizarre thinking and homicidal remarks. Apparently the patient was at her mother's house this morning and appeared to be under the influence of drugs and in an altered state of mind. (The patient's mother reportedly has power of commercial real estate attorney over the patient.) The patient had written down in a diary like book to find Yessica, her daughter and kill her. The patient had also written other strange comments about hurting Yessica, who is the 4-year- old daughter of the patient. One of the bizarre comments made by the patient's , in her writings was to smell the vagina of her 4-year-old daughter. Upon interview, the patient is a very poor historian. She is highly emotionally distraught. She is speaking very rapidly and at times in a pressured manner at this physician. She is screaming, crying, and refusing to participate in the interview. This physician understands from the patient's stepfather the patient has used drugs (intravenously) approximately 2 days ago. The patient is positive for cannabinoids. The patient's daughter was recently given to the patient's paternal grandparents. The patient is denying writing these bizarre comments but these comments are contained amongst the patient's belongings, and what appears to be the patient's diary like book. Tobacco Use In Past 30 Days: 5 or More Cigarettes/Day Alcohol Use: Monthly or Less Hospital Course Patient was admitted to a locked, inpatient psychiatric unit. A general medical consultation was obtained. Appropriate precautions were in place throughout patient's hospital stay. Patient was seen and examined on the unit by psychiatry and also visited by counselor. Psychotropic medications were adjusted. Patient was started on Risperdal for the management of psychosis and was additionally started on Risperdal Consta to improve adherence with this medication in outpatient setting. Patient had improvement in presenting psychiatric symptomatology during the course of her hospital stay. In particular, there was resolution of patient's presenting psychosis. Patient's behavior improved with psychopharmacologic treatment, although with the benefit of observation it is clear that she does exhibit some need for immediate gratification and poor frustration tolerance that are likely linked with her substance use and are felt to be characterological in nature. These personality features would not improve with more extended inpatient psychiatric hospital stay. On the day of discharge: Patient seen and examined with nurse. Chart reviewed. Case discussed with nursing staff. No behavioral issues overnight. Case discussed with counselor. On my examination today, the patient requests discharge from the inpatient psychiatric unit. She denies any suicidal or homicidal ideation, intent or plan on direct questioning and contracts for safety. No urge to hurt daughter or any other member of the family. Mood is stable and I can elicit no depressive or hypomanic/manic symptoms. She denies any audiovisual hallucinations. I can elicit no delusional material. There is no evidence of any impairment in reality construction in this patient at this time. She denies side effects from medications. I have strongly recommended adherence with medications in the outpatient setting and cautioned her that she places herself at high risk for relapse and rehospitalization should she become medication nonadherent. She has no physical complaints except for some dental pain for which she has been seen by the hospitalist. Suicide and violence risk assessment on day of discharge both suggest lower imminent risk. Personality features and substance use likely confer some degree of chronic risk but not acute or imminent risk, and as noted these would not be improved by a longer inpatient psychiatric hospital stay. Patient's level of function is adequate for outpatient care. The patient no longer meets criteria for involuntary psychiatric hospitalization and is requesting discharge from the hospital today. I must therefore arranged for her discharge today with psychiatric follow-up as arranged by counselor. Patient is also to follow-up with primary care and with dentist. I have counseled the patient to abstain from substances of abuse. I counseled patient regarding warning signs for need to return to the psychiatric emergency room as part of a general safety plan. Results Blood Pressure 128 / 77 Vital Signs Date Time Temp Pulse Resp B/P (MAP) Pulse Ox O2 Delivery O2 Flow Rate FiO2 04/04/17 05:41 98.2 87 17 128/77 (94) 97 Laboratory Results Test 03/26/17 11:00 Cholesterol Level 189 MG/DL (120-200) HDL Cholesterol 63.1 MG/DL (40.0-60.0) Hemoglobin A1c 5.6 % (4.3-6.0) LDL Cholesterol 113 MG/DL (0-99) Triglycerides Level 64 MG/DL (42-150) Summary of Procedures EEG normal. Imaging Last Impressions Abdomen X-Ray 03/29/17 0000 Signed Impressions: Service Date/Time: Wednesday, March 29, 2017 12:12 - CONCLUSION: No acute disease. Blaise Quintana MD Brain MRI 03/26/17 0000 Signed Impressions: Service Date/Time: Sunday, March 26, 2017 18:59 - CONCLUSION: Normal examination for a patient of this age. Yonis Garay MD Pending results at discharge: No Medications # of Antipsychotic meds at D/C: 1 Approp Antipsych med options 1 - Minimum of three failed multiple trials of monotherapy. 2 - Documented plan to taper to monotherapy due to previous use of multiple meds OR cross-taper in progress at D/C. 3 - Documentation of augmentation of Clozapine. 4 - Justification other than those listed in allowable values 1-3, document here : Discharge Discharge Date: Apr 04, 2017 Discharge Diagnosis: (1) Brief psychotic disorder Diagnosis: Principal (stabilized) ICD Code: F23 - Brief psychotic disorder Status: Acute (2) Polysubstance abuse Diagnosis: Secondary (counseled to quit) ICD Code: F19.10 - Other psychoactive substance abuse, uncomplicated Pt Condition on Discharge: Stable Discharge Disposition: Discharge Home Discharge Instructions Diet Instructions: As Tolerated, No Restrictions Activities you can perform: Weight Bearing as Janice Scheduled Appointment: Lebron Arcos Appointment Date: Apr 05, 2017 Appointment Time: 7:30 a.m. New Orders: VITAMIN D,25-HYDROXY - 2 Months New Medications: Risperidone Inj (Risperdal Consta Inj) 12.5 Mg/2 Ml Inj 12.5 MG IM Q14D for Mental Health, #1 VIAL 0 Refills This dose of Risperdal Consta is due on 04/15/2017. Cholecalciferol (Gnp Vitamin D3 Extra Stre) 1,000 Unit Tab 2000 UNITS PO DAILY for Vitamin D for 15 Days, TAB 1 Refill Docusate Sodium (Dok) 100 Mg Cap 100 MG PO BID for Constipation for 15 Days, #30 CAP 1 Refill Mirtazapine (Mirtazapine) 15 Mg Tab 15 MG PO HS for Mental Health for 15 Days, TAB 1 Refill Risperidone (Risperdal) 1 Mg Tab 1.5 MG PO BID for Mental Health for 21 Days, #63 TAB 0 Refills Take oral Risperdal for 21 days and then stop. Be sure to get your next Risperdal Consta injection. Discontinued Medications: Nitrofurantoin Monohydrate Macrocrystals (Macrobid) 100 Mg Cap 100 MG PO BID for Infection for 7 Days, #14 CAP 0 Refills Discharge Time <= 30 minutes Mental Status Examination Appearance: Appropriate Consciousness: Alert Orientation: x4 Motor Activity: Normal gait, Other (no abnormal motor movements noted) Speech: Unremarkable Language: Adequate Fund of Knowledge: Adequate Attention and Concentration: Adequate Memory: Unremarkable Mood: Appropriate Affect: Appropriate Thought Process & Associations: Intact, Logical, Goal directed, Linear Thought Content: Appropriate Hallucination Type: None Delusion Type: None Suicidal Ideation: No Suicidal Plan: No Suicidal Intention: No Homicidal Ideation: No Homicidal Plan: No Homicidal Intention: No Insight: Fair (at best) Mental Status Exam Remarks Judgment is fair at best Discharge/Advance Care Plan Health Problems: (1) Brief psychotic disorder (2) Polysubstance abuse Goals to promote your health * To prevent worsening of your condition and complications * To maintain your health at the optimal level Directions to meet your goals Take your medications as prescribed Follow your dietary instruction Follow activity as directed Keep your appointments as scheduled Take your immunizations and boosters as scheduled If your symptoms worsen call your PCP, if no PCP go to Urgent Care Center or Emergency Room For / questions related to your inpatient stay or results of tests pending at discharge, please contact Dr. Brian Sutton at Smoking is Dangerous to Your Health. Avoid second hand smoking Brian Sutton MD Apr 04, 2017 11:30
[2017-04-04] MEDS ORDERED: RISP1 PO (11:33)
[2017-04-04 12:52] VITALS: RESP 18
--- NOTE | 2017-04-04 14:48 | HHI.PR ---
Subjective Remarks Reconsult on a 26-year-old with PMH of psychosis, seizure disorder, and hepatitis C who is currently in psychiatry department. Medical team has been reconsulted as patient is complaining of tooth pain. Patient seen and examined earlier this afternoon in her room. She tells that that for the past wee she has been experiencing pain in right lower molar where she has a crown. She has been taking Tylenol with relief but this does not completely eliminate her pain. She denies fever, chills, nausea, vomiting, diarrhea. Still able to eat and drink without difficulties. Objective Vitals Vital Signs Date Time Temp Pulse Resp B/P (MAP) Pulse Ox O2 Delivery O2 Flow Rate FiO2 04/04/17 12:52 18 04/04/17 05:41 98.2 87 17 128/77 (94) 97 04/03/17 16:03 98.0 106 18 123/77 (92) 99 Imaging Last Impressions Abdomen X-Ray 03/29/17 0000 Signed Impressions: Service Date/Time: Wednesday, March 29, 2017 12:12 - CONCLUSION: No acute disease. Blaise Quintana MD Brain MRI 03/26/17 0000 Signed Impressions: Service Date/Time: Sunday, March 26, 2017 18:59 - CONCLUSION: Normal examination for a patient of this age. Yonis Garay MD Objective Remarks GENERAL: Patient, in no apparent distress. Pleasant young lady. SKIN: No rashes, ecchymoses or lesions. Cool and dry. HEAD: Atraumatic. Normocephalic. No temporal or scalp tenderness. EYES: No scleral icterus. No injection or drainage. ENT: Nose without bleeding, purulent drainage or septal hematoma. Right lower molar with crown noted, gums with no edema, or redness. Airway patent. NECK: Trachea midline. No lymphadenopathy appreciated. CARDIOVASCULAR: Regular rate and rhythm without murmurs, gallops, or rubs. RESPIRATORY: Clear to auscultation. Breath sounds equal bilaterally. No wheezes , rales, or rhonchi. GASTROINTESTINAL: Abdomen soft, non-tender, nondistended. No guarding. MUSCULOSKELETAL: Extremities without clubbing, cyanosis, or edema. No calf tenderness. NEUROLOGICAL: Awake and alert. Motor and sensory grossly within normal limits. Normal speech. A/P Assessment and Plan 26-year-old with PMH of psychosis, seizure disorder, and hepatitis C who is currently in psychiatry department. Medical team has been reconsulted as patient is complaining of tooth pain. Molar pain with crown in place - At the moment I do not see any sign of infection. Patient was advised that she ill need x-rays and will need to be seen by dentist for further evaluation - Offered topical pain analgesics, however patient declined. She states that she will have to wait till the medication is available from the pharmacy and she believes she will be going home later today - She repots already receiving information on a free dental clinic in [facility] and plans on getting this molar extracted since she does not have health or dental insurance Franko Chau Apr 04, 2017 14:48
== END 2017-04-04 14:00 | disposition home or self-care (01) | DRG 885 ==
LOC: NEPJ 11:17 → NEDA 16:04 → H270 21:03 → H260 04-01 00:09 → H270 04-02 16:30
PROVIDERS: ADMIT Psychiatry & Neurology Psychiatry; ATTEND Psychiatry & Neurology Psychiatry
DX: F23 Brief psychotic disorder (principal); F19.10 Other psychoactive substance abuse, uncomplicated; G40.909 Epilepsy, unspecified, not intractable, without status epilepticus; N39.0 Urinary tract infection, site not specified; E55.9 Vitamin D deficiency, unspecified; B19.20 Unspecified viral hepatitis C without hepatic coma; K59.00 Constipation, unspecified; K08.89 Other specified disorders of teeth and supporting structures; B96.20 Unspecified Escherichia coli [E. coli] as the cause of diseases classified elsewhere; F17.210 Nicotine dependence, cigarettes, uncomplicated
CPT/HCPCS: 70553; 74000; 80048; 80053; 80061; 80074; 80307; 81001; 82306; 82607; 83036; 84443; 84703; 85025; 85652; 86038; 86592; 86703; 87077; 87086; 87186; 87491; 87591; 93005; 95819; 99285; A9579; G0481; J1200; J2060; J2794; J3486

== ENCOUNTER 2017-08-04 00:22 | Emergency (ER) | payer SELFPAY ==
[~2017-08-04] VITALS: Ht 160 cm; Wt 50.9 kg
[~2017-08-04 00:22] MED LIST: CHOL1000 PO; DOCU1CAP39 PO; MIRTA15 PO; RISP1 PO; RISP12.5 IM
[2017-08-04 01:06] VITALS: BP 104/55; PULSE 83; RESP 15; TEMP 98.2; O2SAT 100
--- NOTE | 2017-08-04 01:43 | PD ---
HPI Chief Complaint: Medication Refill Request Time Seen by Provider: 01:35 Travel History International Travel<30 days: No Contact w/Intl Traveler<30days: No Traveled to known affect area: No History of Present Illness HPI 27-year-old female with a psychiatric history, but she is uncertain of, presents emergency department requesting a refill of Risperdal. Patient states she has not been on this for months but she does want to start back on it. She does not know why she was taking it. Denies suicidal homicidal ideations. Denies any other acute medical needs. History Past Medical Histgory LMP: 07/31/17 Hx Cancer: No (per chart) Hx Chemotherapy: No Hx Radiation Therapy: No Social History Alcohol Use: Yes (OCC) Tobacco Use: Yes (/2 PPD) Allergies-Medications (Allergen,Severity, Reaction): Coded Allergies: No Known Allergies (Verified Allergy, Unknown, 08/04/17) bupropion (Verified Allergy, Unknown, 03/25/17) Per pt, was taken off of Wellbutrin because she had seizures on it. Reported Meds & Prescriptions Reported Meds & Active Scripts Active Risperdal (Risperidone) 1 Mg Tab 1.5 Mg PO BID 21 Days Take oral Risperdal for 21 days and then stop. Be sure to get your next Risperdal Consta injection. Risperdal Consta Inj (Risperidone Inj) 12.5 Mg/2 Ml Inj 12.5 Mg IM Q14D This dose of Risperdal Consta is due on 04/15/2017. Gnp Vitamin D3 Extra Stre (Cholecalciferol) 1,000 Unit Tab 2,000 Units PO DAILY 15 Days Dok (Docusate Sodium) 100 Mg Cap 100 Mg PO BID 15 Days Mirtazapine 15 Mg Tab 15 Mg PO HS 15 Days Review of Systems Except as stated in HPI: all other systems reviewed are Neg Physical Exam Narrative GENERAL: Well-nourished, well-developed female patient in no acute distress SKIN: Focused skin assessment warm/dry. HEAD: Normocephalic. EYES: No scleral icterus. No injection or drainage. NECK: Supple, trachea midline. No JVD or lymphadenopathy. CARDIOVASCULAR: Regular rate and rhythm without murmurs, gallops, or rubs. RESPIRATORY: Breath sounds equal bilaterally. No accessory muscle use. GASTROINTESTINAL: Abdomen soft, non-tender, nondistended. MUSCULOSKELETAL: No cyanosis, or edema. BACK: Nontender without obvious deformity. No CVA tenderness. Data Data Last Documented VS Vital Signs Date Time Temp Pulse Resp B/P (MAP) Pulse Ox O2 Delivery O2 Flow Rate FiO2 08/04/17 01:06 98.2 83 15 104/55 (71) 100 MDM Medical Screen Exam Complete: Yes Emergency Medical Condition: No Differential Diagnosis Med refill Narrative Course 27-year-old female presents emergency department requesting Risperdal refill. She has not been on this medication for months. Denies any acute medical needs. I explained her I will not be restarting her on Risperdal. She has been provided to resource packet. With no urgent or emergent needs medical intervention identified, patient will be discharged at this time. A medical screening exam was performed: At the time of evaluation the presenting medical condition was determined not to be of an emergent nature. The patient was given the option of receiving additional care, but declined. Patient was given options for additional community resources from which to obtain care. The Patient Has Been advised to seek medical attention for their presenting complaint. The patient has been advised to return to the ER at any time if an emergent condition develops. Primary Impression: Encounter for medical screening examination Condition: Stable [place] Drake Aug 04, 2017 01:43
== END 2017-08-04 01:45 | disposition left against medical advice (07) ==
LOC: NEPD 00:22
DX: Z76.0 Encounter for issue of repeat prescription (principal); Z72.0 Tobacco use
CPT/HCPCS: 99281

== ENCOUNTER 2017-09-20 13:20 | Inpatient (IN) | payer SELFPAY ==
[~2017-09-20] VITALS: Ht 160 cm; Wt 52.8 kg
[2017-09-20 13:40] VITALS: BP 109/61; PULSE 92; RESP 16; TEMP 97.7; O2SAT 100
[2017-09-20 15:49] LABS: BASOPHIL # 0.1 TH/MM3 (0-0.2); BASOPHIL % 0.7 % (0.0-2.0); EOSINOPHIL # 0.5 TH/MM3 (0-0.4); HEMATOCRIT 35.9 % (35.0-46.0); HEMOGLOBIN 11.5 GM/DL (11.6-15.3); LYMPH % 26.7 % (9.0-44.0); LYMPHOCYTE # 3.1 TH/MM3 (1.0-4.8); MEAN CELL VOLUME 67.5 FL (80.0-100.0); MEAN CORPUSCULAR HEMOGLOBIN 21.6 PG (27.0-34.0); MEAN PLATELET VOLUME 8.2 FL (7.0-11.0); MONOCYTE # 1.1 TH/MM3 (0-0.9); NEUT % 59.6 % (16.0-70.0); PLATELET COUNT 301 TH/MM3 (150-450); RED BLOOD COUNT 5.32 MIL/MM3 (4.00-5.30); RED CELL DISTRIBUTION WIDTH 15.4 % (11.6-17.2); WHITE BLOOD COUNT 11.7 TH/MM3 (4.0-11.0)
--- NOTE | 2017-09-20 16:01 | PD ---
HPI Chief Complaint: Suicide Ideation/Attempt Time Seen by Provider: 15:44 Travel History International Travel<30 days: No Contact w/Intl Traveler<30days: No Traveled to known affect area: No History of Present Illness HPI 27-year-old female comes into the emergency department voluntarily with suicidal ideation. Patient has history of substance abuse, is currently homeless. She states her mom brought her here. Patient denies medical issues. She denies recent drug or alcohol use. She denies . She is allergic to bupropion. PFSH Past Medical History Arthritis: No Autoimmune Disease: No Anxiety: Yes Depression: Yes Heart Rhythm Problems: No Cancer: No (per chart) Cardiovascular Problems: No (per chart) High Cholesterol: No Chemotherapy: No Chest Pain: No Congestive Heart Failure: No COPD: No Cerebrovascular Accident: No Diabetes: No (per chart) Endocrine: No Gastrointestinal Disorders: Yes GERD: Yes (HX OF GERD) Genitourinary: No Headaches: Yes Hepatitis: Yes (Hep C) Hiatal Hernia: No Immune Disorder: No Insomnia: Yes Kidney Stones: No Musculoskeletal: No Neurologic: No Psychiatric: Yes (Depression, Psychosis (per medical record)) Immunizations Current: Yes Migraines: No Radiation Therapy: No Renal Failure: No Seizures: Yes (2010) Sickle Cell Disease: No Sleep Apnea: No Thyroid Disease: No Ulcer: No Tetanus Vaccination: < 5 Years ?: Unknown LMP: 1 month ago : 7 Para: 1 Miscarriage: 5 : 1 Past Surgical History Abdominal Surgery: No AICD: No Arteriovenous Shunt: No Cardiac Surgery: No Section: Yes Ear Surgery: No Endocrine Surgery: No Eye Surgery: No Genitourinary Surgery: No Gynecologic Surgery: No Insulin Pump: No Joint Replacement: No Oral Surgery: Yes (TONSILECTOMY) Pacemaker: No Thoracic Surgery: No Tonsillectomy: Yes Other Surgery: Yes Social History Alcohol Use: Yes (1-2 beers once month) Tobacco Use: Yes (1/2 ppd cigarettes) Substance Use: Yes (1/2 ppd smoker, marijuana daily-last today, ETOH 1-2x month ) Allergies-Medications (Allergen,Severity, Reaction): Coded Allergies: No Known Allergies (Verified Allergy, Unknown, 08/04/17) bupropion (Verified Allergy, Unknown, 03/25/17) Per pt, was taken off of Wellbutrin because she had seizures on it. Reported Meds & Prescriptions Reported Meds & Active Scripts Active Risperdal Consta Inj (Risperidone Inj) 12.5 Mg/2 Ml Inj 12.5 Mg IM Q14D This dose of Risperdal Consta is due on 04/15/2017. Review of Systems ROS Limitations: Uncooperative, Poor Historian Except as stated in HPI: all other systems reviewed are Neg General / Constitutional: No: Fever Eyes: No: Visual changes HENT: No: Headaches Cardiovascular: No: Chest Pain or Discomfort Respiratory: No: Shortness of Breath Gastrointestinal: No: Abdominal Pain Genitourinary: No: Dysuria Musculoskeletal: No: Pain Skin: No Rash Neurologic: No: Weakness Psychiatric: No: Depression Endocrine: No: Polydipsia Hematologic/Lymphatic: No: Easy Bruising Physical Exam Narrative GENERAL: Patient appears in no obvious distress. She is sleeping when I went to the exam room. SKIN: Warm and dry. Normal color. Normal turgor. Patient is noted to have multiple bruises to the upper middle thighs, but she denies memory of how they got there. HEAD: Atraumatic. Normocephalic. Nontender. EYES: Pupils equal and round. No scleral icterus. No injection or drainage. ENT: No nasal bleeding or discharge. Mucous membranes pink and moist. Pharynx is clear. Airway is patent. NECK: Trachea midline. Supple. CARDIOVASCULAR: Regular rate and rhythm. RESPIRATORY: No accessory muscle use. Clear to auscultation. Breath sounds equal bilaterally. GASTROINTESTINAL: Abdomen soft, non-tender, nondistended. Hepatic and splenic margins not palpable. MUSCULOSKELETAL: Extremities without clubbing, cyanosis, or edema. No obvious deformities. Full range of motion without tenderness. NEUROLOGICAL: Awake and alert. No obvious cranial nerve deficits. Motor grossly within normal limits. Five out of 5 muscle strength in the arms and legs. Normal speech. PSYCHIATRIC: Appropriate mood and affect; insight and judgment normal. Data Data Last Documented VS Vital Signs Date Time Temp Pulse Resp B/P (MAP) Pulse Ox O2 Delivery O2 Flow Rate FiO2 09/20/17 13:40 97.7 92 16 109/61 (77) 100 Orders Orders Diet Regular Basic (09/20/17 Dinner) Complete Blood Count With Diff (09/20/17 14:59) Comprehensive Metabolic Panel (09/20/17 14:59) Thyroid Stimulating Hormone (09/20/17 14:59) Ed Urine Pregnancytest Poc (09/20/17 14:59) Psych Screen (09/20/17 14:59) Drug Screen, Random Urine (09/20/17 14:59) Labs Laboratory Tests Test 09/20/17 15:12 09/20/17 15:30 White Blood Count 11.7 TH/MM3 Red Blood Count 5.32 MIL/MM3 Hemoglobin 11.5 GM/DL Hematocrit 35.9 % Mean Corpuscular Volume 67.5 FL Mean Corpuscular Hemoglobin 21.6 PG Mean Corpuscular Hemoglobin Concent 32.0 % Red Cell Distribution Width 15.4 % Platelet Count 301 TH/MM3 Mean Platelet Volume 8.2 FL Neutrophils (%) (Auto) 59.6 % Lymphocytes (%) (Auto) 26.7 % Monocytes (%) (Auto) 9.0 % Eosinophils (%) (Auto) 4.0 % Basophils (%) (Auto) 0.7 % Neutrophils # (Auto) 7.0 TH/MM3 Lymphocytes # (Auto) 3.1 TH/MM3 Monocytes # (Auto) 1.1 TH/MM3 Eosinophils # (Auto) 0.5 TH/MM3 Basophils # (Auto) 0.1 TH/MM3 CBC Comment DIFF FINAL Differential Comment MDM Medical Decision Making Medical Screen Exam Complete: Yes Emergency Medical Condition: Yes Medical Record Reviewed: Yes Differential Diagnosis Depression. Suicidal ideation. History of substance abuse. Narrative Course Patient appears medically stable at time of exam. Labs ordered per psychiatric protocol. Psych screen is ordered. Patient is medically cleared for psychiatric evaluation. Ed Ferrell Sep 20, 2017 16:01
[2017-09-20 16:08] LABS: ALBUMIN 3.3 GM/DL (3.4-5.0); AST (GOT) 16 U/L (15-37); BICARBONATE 29.4 MEQ/L (21.0-32.0); BLOOD UREA NITROGEN 7 MG/DL (7-18); CALCIUM 8.9 MG/DL (8.5-10.1); CHLORIDE 104 MEQ/L (98-107); CREATININE 0.78 MG/DL (0.50-1.00); GLOMERULAR FILTRATION RATE 87 ML/MIN (>89); GLUCOSE,RANDOM 82 MG/DL (74-106); SODIUM (NA) 142 MEQ/L (136-145)
[2017-09-20 16:09] LABS: ALT (GPT) 31 U/L (10-53)
[2017-09-20 16:19] LABS: ALKALINE PHOSPHATASE 73 U/L (45-117); TOTAL BILIRUBIN ADULT 0.3 MG/DL (0.2-1.0); TOTAL PROTEIN 7.3 GM/DL (6.4-8.2)
[2017-09-20 18:26] VITALS: BP 97/54; PULSE 54; RESP 16; TEMP 97.7; O2SAT 97
[2017-09-20 22:10] VITALS: BP 102/62; PULSE 51; RESP 18; TEMP 98.6; O2SAT 98
[2017-09-21 02:26] VITALS: BP 103/64; PULSE 61; RESP 18; TEMP 98.2; O2SAT 99
[2017-09-21 06:24] VITALS: BP 122/69; PULSE 52; RESP 17; TEMP 98.7; O2SAT 98
--- NOTE | 2017-09-21 08:55 | HHI.HP ---
Provisional Diagnosis Admission Date 09/21/2017 [place]. 1. Adjustment disorder with depressed mood Rule out drug-induced mood disorder Rule out primary depressive illness 2. Polysubstance dependence [place]. 1. Some cluster B personality traits Certification of Person's Competence To Provide Express and Informed Consent I have personally examined Nathalia Barber , a person being served at [facility] on, Sep 21, 2017 08:55. Express and informed consent means consent voluntarily given in writing, by a competent person, after sufficient explanation and disclosure of the subject matter involved to enable the person to make a knowing and willful decision without any element of force, fraud, deceit, duress, or other form of constraint or coercion. This person is 18 years of age or older, is not now known to be incompetent to consent to treatment with a guardian advocate, and does not have a health care surrogate or proxy currently making medical treatment decisions. I have found this person to be one of the following: [x] Competent to provide express and informed consent, as defined above, for voluntary admission to this facility and is competent to provide express and informed consent for treatment. He/she has the consistent capacity to make well reasoned, willful, and knowing decisions concerning his or her medical or mental health treatment. The person fully and consistently understands the purpose of the admission for examination/placement and is fully capable of personally exercising all rights assured [place] Incompetent to provide express and informed consent to voluntary admission, and this is incompetent to provide express and informed consent to treatment. The person must be transferred to involuntary status and a petition for a guardian advocate filed with the Circuit Court. [] Refusing to provide express and informed consent to voluntary admission but is competent to provide express and informed consent for treatment. The person must be discharged or transferred to involuntary status. Form shall be completed within 24 hours of a person's arrival at the receiving facility and filed in the clinical record of each person: 1. Admitted on a voluntary basis 2. Permitted to provide express and informed consent to his/her own treatment 3. Allowed to transfer from involuntary to voluntary status 4. Prior to permitting a person to consent to his or her own treatment after having been previously found incompetent to consent to treatment. History of Present Illness Capacity: Has Capacity Psych Chief Complaint: Depression, SI HPI Ms. Barber is a 27-year-old female with a history of substance use issues and brief psychotic disorder, possibly related to the substance use who presents voluntarily for psychiatric evaluation. Reviewing the electronic medical record , I note the patient was admitted most recently under my care in March 2017. Patient seen and examined. Chart reviewed. Case discussed with nurse in the J pod. On my examination this morning, patient presents as dysphoric. She says that she has been feeling depressed since her biological father a few weeks ago. In addition to low mood the patient endorses poor sleep, hopeless and worthless feelings, fatigue, poor concentration. Reports more recent onset of suicidal ideation with planned overdose on illicit drugs. No reported urge to hurt self on an inpatient unit. No hypomanic or manic symptoms. Denies audiovisual hallucinations. Possibly some paranoia, may be substance related but no other delusional material. She does report a history of mood instability and possible hypomanic or manic episodes in the past. Remainder of the psychiatric ROS is negative. No acute physical complaints. Past psychiatric history: Previous diagnoses as noted above. Not currently seeing an outpatient psychiatrist. Denies any interval psychiatric admissions or suicide attempts since she was last admitted to the unit here. Family history: Patient endorses a family history of mental illness and suicide in a cousin. Chemical dependency history: Patient admits to use of crack cocaine and cannabis. Denies any use of alcohol, benzodiazepine, amphetamines or other substances. Social history: Patient has been homeless for 2 weeks. She has a grade 11 education and subsequently obtained her GED. She is not working. Denies any history. Denies any legal history. Denies any access to guns or firearms. No reported trauma history. She is single with a daughter. Review of Systems ROS Limitations: Poor Historian Except as stated in HPI: all other systems reviewed are Neg Past Family Social History Coded Allergies: No Known Allergies (Verified Allergy, Unknown, 08/04/17) bupropion (Verified Allergy, Unknown, 03/25/17) Per pt, was taken off of Wellbutrin because she had seizures on it. Past Medical History See electronic medical record Active Scripts Risperidone Inj (Risperdal Consta Inj) 12.5 Mg/2 Ml Inj, 12.5 MG IM Q14D for Mental Health, #1 VIAL 0 Refills This dose of Risperdal Consta is due on 04/15/2017. Prov:Brian Sutton MD 04/02/17 Discontinued Scripts Risperidone (Risperdal) 1 Mg Tab, 1.5 MG PO BID for Mental Health for 21 Days, # 63 TAB 0 Refills Take oral Risperdal for 21 days and then stop. Be sure to get your next Risperdal Consta injection. Prov:Brian Sutton MD 04/04/17 Cholecalciferol (Gnp Vitamin D3 Extra Stre) 1,000 Unit Tab, 2000 UNITS PO DAILY for Vitamin D for 15 Days, TAB 1 Refill Prov:Brian Sutton MD 04/02/17 Docusate Sodium (Dok) 100 Mg Cap, 100 MG PO BID for Constipation for 15 Days, # 30 CAP 1 Refill Prov:Brian Sutton MD 04/02/17 Mirtazapine (Mirtazapine) 15 Mg Tab, 15 MG PO HS for Mental Health for 15 Days, TAB 1 Refill Prov:Brian Sutton MD 04/02/17 Taking no home medications presently Patient's Strengths (min. 2) In a monitored setting. Verbally fluent. Physical Exam PE completed by ED provider. On my exam, patient in no acute physical distress. No signs of intoxication or withdrawal noted. No motor abnormalities noted. Labs and vitals reviewed: Vital Signs Vital Signs Date Time Temp Pulse Resp B/P (MAP) Pulse Ox O2 Delivery O2 Flow Rate FiO2 09/21/17 06:24 98.7 52 17 122/69 (86) 98 Room Air Lab Results Test 09/20/17 15:12 09/20/17 15:30 Urine Opiates Screen NEG Urine Barbiturates Screen NEG Urine Amphetamines Screen NEG Urine Benzodiazepines Screen NEG Urine Cocaine Screen POS Urine Cannabinoids Screen POS White Blood Count 11.7 TH/MM3 Red Blood Count 5.32 MIL/MM3 Hemoglobin 11.5 GM/DL Hematocrit 35.9 % Mean Corpuscular Volume 67.5 FL Mean Corpuscular Hemoglobin 21.6 PG Mean Corpuscular Hemoglobin Concent 32.0 % Red Cell Distribution Width 15.4 % Platelet Count 301 TH/MM3 Mean Platelet Volume 8.2 FL Neutrophils (%) (Auto) 59.6 % Lymphocytes (%) (Auto) 26.7 % Monocytes (%) (Auto) 9.0 % Eosinophils (%) (Auto) 4.0 % Basophils (%) (Auto) 0.7 % Neutrophils # (Auto) 7.0 TH/MM3 Lymphocytes # (Auto) 3.1 TH/MM3 Monocytes # (Auto) 1.1 TH/MM3 Eosinophils # (Auto) 0.5 TH/MM3 Basophils # (Auto) 0.1 TH/MM3 CBC Comment DIFF FINAL Differential Comment Blood Urea Nitrogen 7 MG/DL Creatinine 0.78 MG/DL Random Glucose 82 MG/DL Total Protein 7.3 GM/DL Albumin 3.3 GM/DL Calcium Level 8.9 MG/DL Alkaline Phosphatase 73 U/L Aspartate Amino Transf (AST/SGOT) 16 U/L Alanine Aminotransferase (ALT/SGPT) 31 U/L Total Bilirubin 0.3 MG/DL Sodium Level 142 MEQ/L Potassium Level 3.6 MEQ/L Chloride Level 104 MEQ/L Carbon Dioxide Level 29.4 MEQ/L Anion Gap 9 MEQ/L Estimat Glomerular Filtration Rate 87 ML/MIN Thyroid Stimulating Hormone 3rd Gen 0.508 uIU/ML ED point of care test negative. Mental Status Examination Appearance: Disheveled Consciousness: Alert Orientation: x4 Motor Activity: Other (Motor exam as above) Speech: Hesitant, Slow Language: Adequate Fund of Knowledge: Adequate Attention and Concentration: Easily Distracted Memory: Unremarkable (Grossly intact on clinical exam) Mood: Other (Dysphoric) Affect: Other (Restricted) Thought Process & Associations: Intact Thought Content: Appropriate Hallucination Type: None Delusion Type: Other (Possibly some paranoia) Suicidal Ideation: Yes Suicidal Plan: Yes (Overdose on illicit drugs) Suicidal Intention: No (No urge to hurt self on unit) Homicidal Ideation: No Homicidal Plan: No Homicidal Intention: No Insight: Poor Judgment: Poor Assessment & Plan Problem List: (1) Adjustment disorder with depressed mood ICD Codes: F43.21 - Adjustment disorder with depressed mood (2) Polysubstance dependence ICD Codes: F19.20 - Other psychoactive substance dependence, uncomplicated Assessment & Plan 27-year-old female with psychiatric history as detailed above who presents for psychiatric evaluation. On my exam, patient is dysphoric and reports suicidal ideation with plans to overdose on illicit drugs. Symptoms reportedly began after biological father's passing a few weeks ago. Possibly some component of substance-induced mood disorder. Patient requires psychiatric hospitalization at this time for safety, observation and stabilization. Admit inpatient. Voluntary status. Initiate Seroquel 50 mg at bedtime for mood stabilization. Atarax as needed for anxiety, Cogentin as needed for EPS, Benadryl as needed for sleep. R/B/A for medications discussed with patient. Obtain laboratories to follow up on abnormal lab values in initial screening as well as lipid panel and hemoglobin A1c in the morning. Vitals every shift. Counselor to see. Disposition planning. Estimated length of stay: 5-7 days. Discharge Planning Pending psychiatric stabilization Request HC Surrog/Guard Advoc?: No Brian Sutton MD Sep 21, 2017 08:55
[2017-09-21] MEDS ORDERED: NICOTINE 21 MG/24 HR PATCH T-DERMAL PRN (09:00)
[2017-09-21] MEDS ORDERED: BENZTROPINE MESYLATE 2 MG/2 ML VIAL IM PRN (09:00)
[2017-09-21] MEDS ORDERED: ACETAMINOPHEN 325 MG TAB PO PRN (09:00)
[2017-09-21] MEDS ORDERED: BENZTROPINE MESYLATE 1 MG TAB PO PRN (09:00)
[2017-09-21] MEDS ORDERED: hydrOXYzine HCL 50 MG TAB PO PRN (09:00)
[2017-09-21] MEDS ORDERED: MAGNESIUM HYDROXIDE SUSP 30 ML CUP PO PRN (09:00)
[2017-09-21] MEDS ORDERED: ALUMINUM/MAGNESIUM/SIMETH 30 ML CUP PO PRN (09:00)
[2017-09-21 10:46] VITALS: BP 110/62; PULSE 85; RESP 17; TEMP 97.8; O2SAT 100
[2017-09-21 18:10] VITALS: BP_SYST 104; BP_SYST 125; BP_DIAS 55; BP_DIAS 60; PULSE 65; PULSE 96; RESP 17; TEMP 97.6; TEMP 98.5; O2SAT 100; O2SAT 94
[2017-09-21] MEDS: QUEtiapine FUMARATE 25 MG TAB PO SCH (21:17)
[2017-09-21] MEDS: diphenhydrAMINE HCL 50 MG CAP PO PRN (21:20)
[2017-09-22 06:00] VITALS: BP 110/64; PULSE 58; RESP 16; TEMP 97.6; O2SAT 98
[2017-09-22 09:08] LABS: AUTOMATED NEUTROPHIL # 5.6 TH/MM3 (1.8-7.7); BASOPHIL # 0.1 TH/MM3 (0-0.2); BASOPHIL % 1.2 % (0.0-2.0); EOSINOPHIL # 0.5 TH/MM3 (0-0.4); EOSINOPHIL % 5.3 % (0.0-4.0); HEMATOCRIT 38.9 % (35.0-46.0); HEMOGLOBIN 12.4 GM/DL (11.6-15.3); LYMPH % 26.5 % (9.0-44.0); LYMPHOCYTE # 2.7 TH/MM3 (1.0-4.8); MEAN CELL VOLUME 67.8 FL (80.0-100.0); MEAN CORPUSCULAR HEMOGLOBIN 21.7 PG (27.0-34.0); MEAN PLATELET VOLUME 8.5 FL (7.0-11.0); MONO % 11.2 % (0.0-8.0); MONOCYTE # 1.1 TH/MM3 (0-0.9); NEUT % 55.8 % (16.0-70.0); PLATELET COUNT 331 TH/MM3 (150-450); RED BLOOD COUNT 5.74 MIL/MM3 (4.00-5.30); RED CELL DISTRIBUTION WIDTH 15.8 % (11.6-17.2); WHITE BLOOD COUNT 10.1 TH/MM3 (4.0-11.0)
[2017-09-22 09:45] LABS: BICARBONATE 29.8 MEQ/L (21.0-32.0); BLOOD UREA NITROGEN 11 MG/DL (7-18); CALCIUM 8.7 MG/DL (8.5-10.1); CHLORIDE 103 MEQ/L (98-107); CHOLESTEROL 174 MG/DL (120-200); CHOLESTEROL/ HDL RATIO 3.79 RATIO; CREATININE 0.84 MG/DL (0.50-1.00); GLOMERULAR FILTRATION RATE 80 ML/MIN (>89); GLUCOSE,RANDOM 92 MG/DL (74-106); HDL CHOLESTEROL 45.9 MG/DL (40.0-60.0); LDL CHOLESTEROL 75 MG/DL (0-99); SODIUM (NA) 141 MEQ/L (136-145); TRIGLYCERIDES 264 MG/DL (42-150)
[2017-09-22 10:17] LABS: HEMOGLOBIN A1C 5.5 % (4.3-6.0)
--- NOTE | 2017-09-22 13:50 | HHI.PYPN ---
Subjective Chief Complaint: Depression, SI Remarks Pt seen and discussed with nursing staff. She was admitted secondary to psychosis and was positive for cannabis and cocaine. Staff report observing her responding to internal stimuli (laughing inappropriately and grabbing at the air ) but symptoms are decreased today. She presents with odd mannerisms and reports AH continue but have decreased. No SI/HI today. Mental Status Examination Appearance: Disheveled Consciousness: Alert Orientation: x4 Motor Activity: Other (Motor exam as above) Speech: Hesitant, Slow Language: Adequate Fund of Knowledge: Adequate Attention and Concentration: Easily Distracted Memory: Unremarkable (Grossly intact on clinical exam) Mood: Other (Dysphoric) Affect: Other (Restricted) Thought Process & Associations: Intact Thought Content: Appropriate Hallucination Type: Auditory Delusion Type: Other (Possibly some paranoia) Suicidal Ideation: No Suicidal Plan: No Suicidal Intention: No Homicidal Ideation: No Homicidal Plan: No Homicidal Intention: No Insight: Poor Judgment: Poor Results Labs Test 09/22/17 08:12 White Blood Count 10.1 TH/MM3 Red Blood Count 5.74 MIL/MM3 Hemoglobin 12.4 GM/DL Hematocrit 38.9 % Mean Corpuscular Volume 67.8 FL Mean Corpuscular Hemoglobin 21.7 PG Mean Corpuscular Hemoglobin Concent 32.0 % Red Cell Distribution Width 15.8 % Platelet Count 331 TH/MM3 Mean Platelet Volume 8.5 FL Neutrophils (%) (Auto) 55.8 % Lymphocytes (%) (Auto) 26.5 % Monocytes (%) (Auto) 11.2 % Eosinophils (%) (Auto) 5.3 % Basophils (%) (Auto) 1.2 % Neutrophils # (Auto) 5.6 TH/MM3 Lymphocytes # (Auto) 2.7 TH/MM3 Monocytes # (Auto) 1.1 TH/MM3 Eosinophils # (Auto) 0.5 TH/MM3 Basophils # (Auto) 0.1 TH/MM3 CBC Comment DIFF FINAL Differential Comment Blood Urea Nitrogen 11 MG/DL Creatinine 0.84 MG/DL Random Glucose 92 MG/DL Calcium Level 8.7 MG/DL Sodium Level 141 MEQ/L Potassium Level 4.5 MEQ/L Chloride Level 103 MEQ/L Carbon Dioxide Level 29.8 MEQ/L Anion Gap 8 MEQ/L Estimat Glomerular Filtration Rate 80 ML/MIN Hemoglobin A1c 5.5 % Triglycerides Level 264 MG/DL Cholesterol Level 174 MG/DL LDL Cholesterol 75 MG/DL HDL Cholesterol 45.9 MG/DL Cholesterol/HDL Ratio 3.79 RATIO Vitals/IOs Vital Signs Date Time Temp Pulse Resp B/P (MAP) Pulse Ox O2 Delivery O2 Flow Rate FiO2 09/22/17 06:00 97.6 58 16 110/64 (79) 98 09/21/17 06:24 Room Air Assessment & Plan Problem List: (1) Substance-induced psychotic disorder with hallucinations ICD Codes: F19.951 - Other psychoactive substance use, unspecified with psychoactive substance-induced psychotic disorder with hallucinations (2) Polysubstance dependence ICD Codes: F19.20 - Other psychoactive substance dependence, uncomplicated (3) Adjustment disorder with depressed mood ICD Codes: F43.21 - Adjustment disorder with depressed mood Assessment & Plan Continue current tx plan. Pts symptoms are clearing but require monitoring. Estimated LOS: days Justification for Cont. Inpt. impairments in reality testing Request HC Surrog/Guard Advoc?: Yvrose Palacios MD Sep 22, 2017 13:49
--- NOTE | 2017-09-22 14:25 | EKG ---
Date Performed: 09/22/2017 Time Performed: 10:38:16 PTAGE: 27 years EKG: Sinus rhythm POSSIBLE RIGHT VENTRICULAR CONDUCTION DELAY BORDERLINE ECG PREVIOUS TRACING : 03/26/2017 13.55 Since the previous tracing, no significant change noted DOCTOR: Mk Hopper Interpretating Date/Time 09/22/2017 14:24:11
[2017-09-22 19:42] VITALS: BP 100/55; PULSE 63; RESP 18; TEMP 98.3; O2SAT 99
[2017-09-22] MEDS: diphenhydrAMINE HCL 50 MG CAP PO PRN (21:30)
[2017-09-22] MEDS: QUEtiapine FUMARATE 25 MG TAB PO SCH (21:30)
[2017-09-22] MEDS ORDERED: OLANZapine IM 10 MG VIAL IM ONE (22:00)
[2017-09-23 06:00] VITALS: BP 106/56; PULSE 58; RESP 16; TEMP 97.7; O2SAT 97
[2017-09-23 11:26] LABS: BACTERIA, URINE RARE /hpf; BILIRUBIN, URINE NEG (NEG); BLOOD, URINE NEG (NEG); GLUCOSE,URINE NEG (NEG); KETONE, URINE NEG (NEG); NITRITE,URINE NEG (NEG); SQUAMOUS EPITHELIAL CELL URINE 2 /hpf (0-5); URINE COLOR YELLOW (YELLW/STRAW); URINE LEUKOCYTE ESTERASE NEG (NEG)
--- NOTE | 2017-09-23 13:37 | PD.TTN ---
Patient Problems 1. Discharge planning 2. Medication compliance 3. Knowledge deficit 4. Lack of coping skills Progress Toward Goals Psychiatric Counselors Present: Vivi Santizo [facility] Psych Therapist Input: 09/23/17- Pt. denies SI/HI. Pt. recieved an ETO yesterday. Group Spec/RT/OT/GOODWIN Present: CHRISTA Raya Group Spec/RT/OT/GOODWIN Input: 09/23/17- Pt. does not attend groups. Ananda Burciaga Sep 23, 2017 13:37
--- NOTE | 2017-09-23 16:54 | HHI.PYPN ---
Subjective Chief Complaint: Depression, SI Remarks Patient initially seen by Dr. Brian Sutton with the initial psychiatric history and physical. I have finished the admission orders template, and finished the med reconciliation patient seen in her room with nurse Sachi, medical student Evelia, chart reviewed, patient laying in bed patient is alert oriented somewhat disheveled white female appears about his stated age somewhat angry challenging irritable and demanding and manipulative she states that she will take the suicide pill if offered her but then later she asked the nurse to give her razor blade so she did shave her axilla and her legs. She also wants her long-term because she is homeless and appears. However she is unwilling to discuss a sober living facility she states she smokes marijuana recreationally and is only recently used cocaine. Though she is grieving and saying her suicidal thoughts are related to the of her father a few weeks ago she also stated that her is her father who introduced her to cocaine and her father of a drug overdose. There is a large component of a personality disorder perhaps cluster B with this placement however with her status suicidality will continue observation and assessment. Review of Systems Except as stated in HPI: all other systems reviewed are Neg Mental Status Examination Appearance: Disheveled Consciousness: Alert Orientation: x4 Motor Activity: Other (Motor exam as above) Speech: Hesitant, Slow Language: Adequate Fund of Knowledge: Adequate Attention and Concentration: Easily Distracted Memory: Unremarkable (Grossly intact on clinical exam) Mood: Other (Dysphoric) Affect: Other (Restricted) Thought Process & Associations: Intact Thought Content: Appropriate Hallucination Type: Auditory Delusion Type: Other (Possibly some paranoia) Suicidal Ideation: No Suicidal Plan: No Suicidal Intention: No Homicidal Ideation: No Homicidal Plan: No Homicidal Intention: No Insight: Poor Judgment: Poor Results Labs Test 09/23/17 10:15 Urine Color YELLOW Urine Turbidity CLEAR Urine pH 7.0 Urine Specific [place] 1.009 Urine Protein NEG mg/dL Urine Glucose (UA) NEG mg/dL Urine Ketones NEG mg/dL Urine Occult Blood NEG Urine Nitrite NEG Urine Bilirubin NEG Urine Urobilinogen LESS THAN 2.0 MG/DL Urine Leukocyte Esterase NEG Urine RBC LESS THAN 1 /hpf Urine WBC LESS THAN 1 /hpf Urine Squamous Epithelial Cells 2 /hpf Urine Bacteria RARE /hpf Microscopic Urinalysis Comment CULT NOT INDICATED Vitals/IOs Vital Signs Date Time Temp Pulse Resp B/P (MAP) Pulse Ox O2 Delivery O2 Flow Rate FiO2 09/23/17 06:00 97.7 58 16 106/56 (73) 97 09/21/17 06:24 Room Air Assessment & Plan Problem List: (1) Substance-induced psychotic disorder with hallucinations ICD Codes: F19.951 - Other psychoactive substance use, unspecified with psychoactive substance-induced psychotic disorder with hallucinations (2) Polysubstance dependence ICD Codes: F19.20 - Other psychoactive substance dependence, uncomplicated (3) Adjustment disorder with depressed mood ICD Codes: F43.21 - Adjustment disorder with depressed mood Assessment & Plan Estimated LOS: days patient continues being depressed, or stating such, with a willingness to take the suicide pill of offered. She is giving some contradictory statements about behaviors that would indicate a desire to live Justification for Cont. Inpt. At this time patient would decompensate a place to a lower level of care Discharge Planning To be determined Request HC Surrog/Guard Advoc?: No Kavon Raygoza MD Sep 23, 2017 16:54
[2017-09-23 18:25] VITALS: BP 103/66; PULSE 85; RESP 18; TEMP 97.7; O2SAT 99
[2017-09-23] MEDS: QUEtiapine FUMARATE 25 MG TAB PO SCH (20:14)
[2017-09-23] MEDS: diphenhydrAMINE HCL 50 MG CAP PO PRN (20:16)
[2017-09-24 06:29] VITALS: BP 104/57; PULSE 67; RESP 18; TEMP 97.3; O2SAT 99
--- NOTE | 2017-09-24 15:31 | HHI.PYPN ---
Subjective Chief Complaint: Depression, SI Remarks Patient seen in her room with nurse Maria Luisa and medical student Shar, chart reviewed, patient complaint medications. Patient continues to have an attitude towards the staff somewhat superior manipulating and entitled. She also is somewhat inappropriately dressed wearing skin. Mccarthy shorter sure them were usually allow. However she does states she is sleeping better with the Seroquel. States she still has some depression that she had been on Celexa in the past. She denies voices or visions. States she is looking still for a place to stay I told her that having a place to stay is not a criteria for continued hospitalization. We will have our counselor Jayce talked with her more today. We will add Celexa 20 mg daily to the regimen Review of Systems Except as stated in HPI: all other systems reviewed are Neg Mental Status Examination Appearance: Disheveled Consciousness: Alert Orientation: x4 Motor Activity: Other (Motor exam as above) Speech: Hesitant, Slow Language: Adequate Fund of Knowledge: Adequate Attention and Concentration: Easily Distracted Memory: Unremarkable (Grossly intact on clinical exam) Mood: Other (Dysphoric) Affect: Other (Restricted) Thought Process & Associations: Intact Thought Content: Appropriate Hallucination Type: Auditory Delusion Type: Other (Possibly some paranoia) Suicidal Ideation: No Suicidal Plan: No Suicidal Intention: No Homicidal Ideation: No Homicidal Plan: No Homicidal Intention: No Insight: Poor Judgment: Poor Results Vitals/IOs Vital Signs Date Time Temp Pulse Resp B/P (MAP) Pulse Ox O2 Delivery O2 Flow Rate FiO2 09/24/17 06:29 97.3 67 18 104/57 (73) 99 09/21/17 06:24 Room Air Assessment & Plan Problem List: (1) Substance-induced psychotic disorder with hallucinations ICD Codes: F19.951 - Other psychoactive substance use, unspecified with psychoactive substance-induced psychotic disorder with hallucinations (2) Polysubstance dependence ICD Codes: F19.20 - Other psychoactive substance dependence, uncomplicated (3) Adjustment disorder with depressed mood ICD Codes: F43.21 - Adjustment disorder with depressed mood Assessment & Plan Estimated LOS: days patient now denies suicidality homicidality voices or visions. She still somewhat manipulative and attitude. See med adjustment above Justification for Cont. Inpt. At this time patient would decompensate a place to a lower level of care Discharge Planning To be determined Request HC Surrog/Guard Advoc?: No Kavon Raygoza MD Sep 24, 2017 15:30
[2017-09-24 17:00] VITALS: BP 99/57; PULSE 65; RESP 18; TEMP 95.9; O2SAT 100
[2017-09-24] MEDS: QUEtiapine FUMARATE 25 MG TAB PO SCH (20:30)
[2017-09-24] MEDS: diphenhydrAMINE HCL 50 MG CAP PO PRN (20:44)
[2017-09-25 05:47] VITALS: BP 105/62; PULSE 58; RESP 18; TEMP 97.6; O2SAT 98
[2017-09-25] MEDS ORDERED: CITALOPRAM HYDROBROMIDE 20 MG TAB PO SCH (09:00)
[2017-09-25] MEDS ORDERED: SERO50TA PO (15:33)
[2017-09-25] MEDS ORDERED: CELE20TA PO (15:33)
--- NOTE | 2017-09-25 15:39 | HHI.DS ---
Psychiatry Discharge Summary Inpatient Psychiatric care?: Yes Advance Directive: No Reason Not Provided: Info provided to patient Mental Health AdvanceDirective: No Health Care Proxy: No Admission Admission Date Sep 21, 2017 at 08:57 Admission Diagnosis: (1) Adjustment disorder with depressed mood ICD Code: F43.21 - Adjustment disorder with depressed mood (2) Polysubstance dependence ICD Code: F19.20 - Other psychoactive substance dependence, uncomplicated (3) Substance-induced psychotic disorder with hallucinations ICD Code: F19.951 - Other psychoactive substance use, unspecified with psychoactive substance-induced psychotic disorder with hallucinations Brief History Ms. Barber is a 27-year-old female with a history of substance use issues and brief psychotic disorder, possibly related to the substance use who presents voluntarily for psychiatric evaluation. Reviewing the electronic medical record , I note the patient was admitted most recently under my care in March 2017. Patient seen and examined. Chart reviewed. Case discussed with nurse in the J pod. On my examination this morning, patient presents as dysphoric. She says that she has been feeling depressed since her biological father a few weeks ago. In addition to low mood the patient endorses poor sleep, hopeless and worthless feelings, fatigue, poor concentration. Reports more recent onset of suicidal ideation with planned overdose on illicit drugs. No reported urge to hurt self on an inpatient unit. No hypomanic or manic symptoms. Denies audiovisual hallucinations. Possibly some paranoia, may be substance related but no other delusional material. She does report a history of mood instability and possible hypomanic or manic episodes in the past. Remainder of the psychiatric ROS is negative. No acute physical complaints. Past psychiatric history: Previous diagnoses as noted above. Not currently seeing an outpatient psychiatrist. Denies any interval psychiatric admissions or suicide attempts since she was last admitted to the unit here. Family history: Patient endorses a family history of mental illness and suicide in a cousin. Chemical dependency history: Patient admits to use of crack cocaine and cannabis. Denies any use of alcohol, benzodiazepine, amphetamines or other substances. Social history: Patient has been homeless for 2 weeks. She has a grade 11 education and subsequently obtained her GED. She is not working. Denies any history. Denies any legal history. Denies any access to guns or firearms. No reported trauma history. She is single with a daughter. Tobacco Use In Past 30 Days: 5 or More Cigarettes/Day Alcohol Use: Monthly or Less Hospital Course Patient's hospital course was uneventful her initial paranoia and guardedness slowly resolved that she showed compliance with the medication of the treatment. She now denies suicidality and homicidality voices or visions. Patient is declined suggestions of staying in a usp or sober living facility. She states she has friends she can stay with her [place]. Patient longer meets Rios criteria will discharge patient Rx 1 month refer to [facility] act, also referred to NA/AA, would recommend absolute sobriety Results Blood Pressure 105 / 62 Vital Signs Date Time Temp Pulse Resp B/P (MAP) Pulse Ox O2 Delivery O2 Flow Rate FiO2 09/25/17 05:47 97.6 58 18 105/62 (76) 98 Laboratory Tests Test 09/23/17 10:15 Urine Bacteria RARE /hpf (NONE) Laboratory Results Test 09/22/17 08:12 Cholesterol Level 174 MG/DL (120-200) HDL Cholesterol 45.9 MG/DL (40.0-60.0) Hemoglobin A1c 5.5 % (4.3-6.0) LDL Cholesterol 75 MG/DL (0-99) Triglycerides Level 264 MG/DL (42-150) Summary of Procedures None done Pending results at discharge: No Medications # of Antipsychotic meds at D/C: 1 Approp Antipsych med options 1 - Minimum of three failed multiple trials of monotherapy. 2 - Documented plan to taper to monotherapy due to previous use of multiple meds OR cross-taper in progress at D/C. 3 - Documentation of augmentation of Clozapine. 4 - Justification other than those listed in allowable values 1-3, document here : Discharge Discharge Date: Sep 25, 2017 Discharge Diagnosis: (1) Substance-induced psychotic disorder with hallucinations Diagnosis: Secondary ICD Code: F19.951 - Other psychoactive substance use, unspecified with psychoactive substance-induced psychotic disorder with hallucinations (2) Adjustment disorder with depressed mood Diagnosis: Principal ICD Code: F43.21 - Adjustment disorder with depressed mood (3) Polysubstance dependence Diagnosis: Secondary ICD Code: F19.20 - Other psychoactive substance dependence, uncomplicated Pt Condition on Discharge: Stable Discharge Disposition: Discharge Home Discharge Instructions Diet Instructions: As Tolerated, No Restrictions Activities you can perform: Regular-No Restrictions Scheduled Appointment: [facility]oss[facility] (Also referred to NA/AA, recommend absolute abstinence) Discharge Time > 30 minutes Mental Status Examination Appearance: Disheveled Consciousness: Alert Orientation: x4 Motor Activity: Other (Motor exam as above) Speech: Hesitant, Slow Language: Adequate Fund of Knowledge: Adequate Attention and Concentration: Easily Distracted Memory: Unremarkable (Grossly intact on clinical exam) Mood: Other (Dysphoric) Affect: Other (Restricted) Thought Process & Associations: Intact Thought Content: Appropriate Hallucination Type: Auditory Delusion Type: Other (Possibly some paranoia) Suicidal Ideation: No Suicidal Plan: No Suicidal Intention: No Homicidal Ideation: No Homicidal Plan: No Homicidal Intention: No Insight: Poor Judgment: Poor Discharge/Advance Care Plan Health Problems: (1) Substance-induced psychotic disorder with hallucinations (2) Polysubstance dependence (3) Adjustment disorder with depressed mood Goals to promote your health * To prevent worsening of your condition and complications * To maintain your health at the optimal level Directions to meet your goals Take your medications as prescribed Follow your dietary instruction Follow activity as directed Keep your appointments as scheduled Take your immunizations and boosters as scheduled If your symptoms worsen call your PCP, if no PCP go to Urgent Care Center or Emergency Room For 05/11 questions related to your inpatient stay or results of tests pending at discharge, please contact Dr. Kavon Raygoza at Smoking is Dangerous to Your Health. Avoid second hand smoking Kavon Raygoza MD Sep 25, 2017 15:38
== END 2017-09-25 16:00 | disposition home or self-care (01) | DRG 881 ==
LOC: NEPJ 13:20 → NEDA 09-21 08:57 → H260 09-21 10:17 → H270 09-23 19:34 → H260 09-23 19:39 → H270 09-23 20:17
PROVIDERS: ADMIT Psychiatry & Neurology Psychiatry; ATTEND Psychiatry & Neurology Psychiatry
DX: F43.21 Adjustment disorder with depressed mood (principal); R45.851 Suicidal ideations; F19.251 Other psychoactive substance dependence with psychoactive substance-induced psychotic disorder with hallucinations; F41.9 Anxiety disorder, unspecified; K21.9 Gastro-esophageal reflux disease without esophagitis; G47.00 Insomnia, unspecified; F60.9 Personality disorder, unspecified; F17.210 Nicotine dependence, cigarettes, uncomplicated; Z59.0 Homelessness; Z81.8 Family history of other mental and behavioral disorders
CPT/HCPCS: 80048; 80053; 80061; 80307; 81001; 83036; 84443; 84703; 85025; 93005; 99285; Q0163